=== PATIENT | female | born 1950 | race Caucasian/White ===

== ENCOUNTER 2020-02-13 11:36 | Outpatient (CLI) | payer BC, MEDICARE, SELFPAY ==
--- NOTE | ~2020-02-13 | XR_ITS ---
EXAMINATION: XR lumbar spine min 4V DATE: 02/13/2020 12:22 INDICATION: Low back pain with right-sided sciatica TECHNIQUE: Anteroposterior, lateral, and bilateral oblique views of the lumbar spine, and cone-down l ateral view of the lumbosacral junction were obtained. COMPARISON: None. FINDINGS: There are 2 mm of anterolisthesis of L3 on L4 and 4 mm of anterolisthesis of L4 on L5. Ther e is severe loss of intervertebral disc space height at L4-5 and L5-S1 moderate loss of disc space he ight throughout the remainder of the lumbar spine. The vertebral body heights are normal. Small degen erative osteophytes project from the anterior endplates of multiple vertebral bodies. There is no fra cture. Calcified atherosclerosis is noted. There is severe facet osteoarthritis of the lower lumbar s pine. The bowel gas pattern is normal. A moderate volume of colonic stool is present. IMPRESSION: 1. Severe lumbar spondylosis without acute findings. Reviewed, dictated and finalized at location A.
== END 2020-02-13 11:37 | disposition home or self-care (01) ==
LOC: ANHIMG 11:53
PROVIDERS: PCP Family Medicine; Visit Provider Family Medicine
DX: M54.41 Lumbago with sciatica, right side (principal); G89.29 Other chronic pain; M47.896 Other spondylosis, lumbar region
CPT/HCPCS: 72110

== ENCOUNTER 2020-03-30 07:48 | Outpatient (CLI) | payer MEDICARE, BC, SELFPAY ==
--- NOTE | 2020-03-30 08:00 | ECHO_ITS ---
Patient Info Name: Yesenia Castillo Age: 69 years : 1950 Gender: Female Ht: 60 in Wt: 225 lbs BSA: 2.14 m2 HR: 85 bpm BP: 173 / 88 mmHg Heart Rhythm: Sinus Rhythm Technical Quality: Good Exam Date: 03/30/2020 8:06 AM Exam Location: [facility] Patient Status: Outpatient Admit Date: 03/30/2020 Staff Ordering Physician: Eris Pathak PA-C Rolled Glass Crosscutter: Cristopher Reagan RDCS, RT Attending Provider: Eris Pathak PA-C Referring Physician: Lawson COTA; Exam Type: CA echo doppler color flow Study Info Indications I35.0 - Nonrheumatic aortic (valve) stenosis Complete two-dimensional, color flow and Doppler transthoracic echocardiogram is performed. Strain analysis performed. History/Risk Factors Mitral stenosis and Mitral regurgitation; HTN, Murmur. Summary 1. Left ventricular chamber dimension is normal. 2. Ventricular septum is sigmoid shaped. 3. Left ventricular systolic function is hyperdynamic, estimated at >70%. 4. There is moderately increased left ventricular wall thickness. 5. The left ventricular diastolic function is abnormal. 6. E/e' 42 is significantly elevated. 7. Left atrial chamber dimension is severely enlarged. 8. The mitral valve has not well visualized and severe calcified annulus. 9. There is moderate mitral valve stenosis based on valve area of 1.8 cm2 and mean gradient of 16 mmHg. 10. There is severe mitral valve regurgitation with regurgitant volume 147 ml and ERO 1.0 cm2. 11. Significant turbulent mitral inflow suggests significant mitral stenosis. 12. There is mild tricuspid valve regurgitation. 13. Mild pulmonary hypertension, estimated pulmonary arterial systolic pressure is 41 mmHg. Left Ventricle E/e' 42 is significantly elevated. Ventricular septum is sigmoid shaped. Left ventricular chamber dimension is normal. Left ventricular systolic function is hyperdynamic, estimated at >70%. There is moderately increased left ventricular wall thickness. The left ventricular diastolic function is abnormal. Right Ventricle Right ventricular chamber dimension is normal. Right ventricular systolic function is normal. Left Atria Left atrial chamber dimension is severely enlarged. Right Atria Right atrial chamber dimension is normal. Aortic Valve The aortic valve is trileaflet. There is no aortic valve stenosis. There is no aortic valve regurgitation. Pulmonic Valve There is no pulmonic regurgitation. Mitral Valve The mitral valve has not well visualized and severe calcified annulus. There is severe mitral valve regurgitation with regurgitant volume 147 ml and ERO 1.0 cm2. Significant turbulent mitral inflow suggests significant mitral stenosis. There is moderate mitral valve stenosis based on valve area of 1.8 cm2 and mean gradient of 16 mmHg. Tricuspid Valve There is mild tricuspid valve regurgitation. Mild pulmonary hypertension, estimated pulmonary arterial systolic pressure is 41 mmHg. Pericardium/Pleural There is no pericardial effusion. Inferior Vena Cava Normal inferior vena cava with >50% collapse upon inspiration consistent with normal right atrial pressure, 5 mmHg. Aorta The aortic root size at the sinus of Valsalva is normal. Left Ventricular Outflow Tract Name Value Normal LVO
== END 2020-03-30 07:49 | disposition home or self-care (01) ==
PROVIDERS: PCP Physician Assistant; Visit Provider Physician Assistant
DX: I08.3 Combined rheumatic disorders of mitral, aortic and tricuspid valves (principal)
CPT/HCPCS: 93306

== ENCOUNTER 2020-04-20 01:00 | Outpatient (CLI) | payer MEDICARE, SELFPAY ==
[2020-04-20 20:48] LABS: SARS-CoV-2 RNA PCR Negative
== END 2020-04-20 01:01 | disposition home or self-care (01) ==
LOC: ANHCOVIDDT 01:01
PROVIDERS: PCP Family Medicine; Visit Provider Internal Medicine Cardiovascular Disease
DX: Z01.812 Encounter for preprocedural laboratory examination (principal); Z20.828 Contact with and (suspected) exposure to other viral communicable diseases
CPT/HCPCS: 87635; C9803; U0003

== ENCOUNTER 2020-04-22 05:33 | Day surgery (SDC) | payer MEDICARE, BC, SELFPAY ==
[2020-04-21 16:12] VITALS: BMI 46.3
[2020-04-22] VITALS (9 sets, daily range): BP systolic 110–163; BP diastolic 61–101; PULSE 75–101; RESP 15–24; TEMP 35.9–36.1; O2SAT 96–100
--- NOTE | 2020-04-22 09:18 | P.SEDATION_ITS ---
Moderate Sedation Note-Pt Data Patient Data Diagnosis: Mixed mitral valve disease Present Complaint: as above Procedure to be performed/Plan: multiplanar transesophageal echocardiography with pulsed wave and color flow Doppler. Agitated saline study Moderate sedation Allergies Allergy/AdvReac Type Severity Reaction Status Date / Time No Known Allergies Allergy Verified 11/12/19 17:03 Home Medications Medication Instructions Recorded Confirmed Type atorvastatin 40 mg tablet 40 mg PO DAILY #30 tablet 11/19/19 04/21/20 Rx fluticasone propionate 50 1 spray NASAL BID PRN ml 11/19/19 04/21/20 History mcg/actuation nasal spray,suspension naproxen 500 mg tablet 500 mg PO BID PRN #60 tablet 02/09/20 04/21/20 Rx levothyroxine 100 mcg tablet 100 mcg PO . q.a.m. #30 tablet 02/25/20 04/21/20 Rx furosemide 20 mg tablet 20 mg PO QAM 04/01/20 04/21/20 History Sedation/Anesthesia: No previous sedation/anesthesia problems (including family history). 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 Heart murmur High blood pressure Hypothyroidism, unspecified Mitral valve stenosis and regurgitation Mixed hyperlipidemia Morbid obesity with BMI of 45.0-49.9, adult Obstructive sleep apnea on CPAP Seasonal allergic rhinitis Surgical History Surgical History H/O section (~1988) History of carpal tunnel release (~2004) S/P removal of thyroid nodule (~1997) Family History Family History Mother , 96 years old Cardiac arrhythmia Father , 69 years old Acute myocardial infarction Cerebrovascular accident Grandparent Pneumonia Grandparent Pneumonia Grandparent Emphysema, unspecified Grandparent Stomach cancer Sibling Cerebrovascular accident Social History Social History Smoking status: Never smoker Second hand tobacco smoke exposure: Yes Alcohol intake: never Substance use: never Substance use type: does not use Living arrangements: with family Gender identity (if verbalized by the patient): Female Spiritual care concerns: No Mod Sed Physical Exam Physical Exam Pre Procedural Exam: Normal: Appearance, Eyes, Ears, Nose, Neck, Throat, Airway, Lungs, Heart Size, Heart Rate, Heart Rhythm, Neuro Exam, Abdomen, Extremities and Skin Hours since solid foods: 12 Hours since liquid intake: 12 Internal Medicine - PN: Obj Da Vital Signs Vital Signs: Vital Signs - 24 hr 04/22/20 08:01 Temperature 35.9 C L Pulse Rate 94 Respiratory Rate 16 Blood Pressure 163/61 H Pulse Oximetry 98 ASA Classification/Sedation ASA Classification/Sedation ASA Class: II Emergent: No Risks: Risks, benefits and alternatives explained and patient/family accepted plan for sedation. Patient re-evaluated immediately prior to sedation.
--- NOTE | 2020-04-22 09:47 | WPDTEECHO ---
KOREY TransEsophageal Echocardiogram Date of procedure: 04/22/20 Procedure Type: 1. Multiplanar transesophageal echocardiogram with pulse wave and continuous wave and color flow Doppler 2. Agitated saline study 3. Moderate sedation Diagnosis: mixed mitral valve disease including mitral stenosis and mitral regurgitation Indications: mixed mitral valve disease Image Quality: good Findings: after discussing the risks, benefits alternatives of procedure the patient agreeable via verbal and written informed consent. Risks discussed included esophageal rupture perforation, , adverse reaction to anesthesia, bleeding, pain, infection. After establishing continuous telemetry monitoring, pulse oxygenation and serial blood pressure assessments, time-out was taken and the procedure was started. Medications given: Hurricaine spray to hypopharynx x2, viscous lidocaine gargle and swallow 8 mL, Versed 3 mg IV total, fentanyl 50 mcg IV total given in divided dosages Medications were administered and patient was monitored by Olivia Baires RN Complications: None Blood loss: None Start time 9:26 a.m. Stop time 9:44 a.m. Findings: Severe left ventricular hypertrophy with ejection fraction greater than 75%. Normal left ventricular size. Normal right ventricular size and function. Tricuspid valve is normal mild tricuspid regurgitation. Pulmonic valve is normal trivial pulmonic insufficiency. Aortic valve is mildly calcified with some restriction of the valve cusps and trivial aortic insufficiency. Left atrial appendage is normal with pulse-wave velocities of 50-75 centimeters/second. There is no mass or thrombus in the left atrial appendage. There is moderate to severe left atrial enlargement. Normal right atrial size. No pericardial effusion. Aortic root measures 2.9 cm. There is mild atherosclerotic disease within the aorta itself. The atrial septum is intact without color flow or agitated saline evidence of shunting. The mitral valve displays severe mitral annular calcification with restricted leaflet mobility. Mean gradient of 11 with moderate to severe mitral regurgitation. Conclusions: 1. Hyperdynamic left ventricle with left ventricular hypertrophy noted 2. Moderate to severe left atrial enlargement 3. Intact atrial septum with negative agitated saline study 4. Moderate to severe mitral regurgitation with moderate mitral stenosis 5. Mild tricuspid regurgitation 6. restricted aortic valve leaflets but without aortic stenosis 7. Moderate sedation
== END 2020-04-22 11:45 | disposition home or self-care (01) ==
PROVIDERS: PCP Family Medicine; Visit Provider Internal Medicine Cardiovascular Disease
PROC: (CPT 93312; principal; 2020-04-22 09:00)
DX: I05.2 Rheumatic mitral stenosis with insufficiency (principal); I36.1 Nonrheumatic tricuspid (valve) insufficiency; I27.20 Pulmonary hypertension, unspecified; G47.33 Obstructive sleep apnea (adult) (pediatric); E78.2 Mixed hyperlipidemia; I10 Essential (primary) hypertension; E03.9 Hypothyroidism, unspecified; E66.01 Morbid (severe) obesity due to excess calories; Z68.42 Body mass index [BMI] 45.0-49.9, adult
CPT/HCPCS: 93312; 93320; 93325; J2250; J3010; J7040

== ENCOUNTER → 2020-12-27 01:28 | Outpatient (CLI) | payer MEDICARE, SELFPAY ==
[2020-12-27 18:55] LABS: SARS-CoV-2 RNA PCR Negative
== END ==
PROVIDERS: PCP Family Medicine; Visit Provider Specialist
DX: Z01.812 Encounter for preprocedural laboratory examination (principal); Z20.822 Contact with and (suspected) exposure to COVID-19
CPT/HCPCS: C9803; U0003; U0005

== ENCOUNTER 2020-12-30 06:09 | Day surgery (SDC) | payer MEDICARE, SELFPAY ==
[2020-12-29 09:32] VITALS: BMI 44.3
[2020-12-30] VITALS (21 sets, daily range): BP systolic 92–145; BP diastolic 51–75; PULSE 47–105; RESP 14–24; TEMP 35.6–35.9; O2SAT 91–99; BMI 43.8
[2020-12-30 07:48] LABS: Basophils Percent Auto 0.1 % (0.2-1.2); Hematocrit 43.4 % (37.0-47.0); Hemoglobin 14.4 g/dL (12.0-15.0); Immature Granulocyte Absolute 0.02 K/mm3 (0.00-0.031); Immature Granulocyte Percent A 0.3 % (0-0.5); Lymphocytes Absolute Auto 1.13 K/mm3 (0.9-3.2); Lymphocytes Percent Auto 16.4 % (18.3-44.2); Mean Corpuscular HGB Conc 33.2 g/dl (32-36); Mean Corpuscular Hemoglobin 30.5 pg (26-34); Mean Corpuscular Volume 91.9 fl (80-100); Mean Platelet Volume 11.9 fl (7.4-10.4); Monocytes Absolute Auto 0.7 K/mm3 (0.1-0.6); Monocytes Percent Auto 10.1 % (2.6-8.5); Neutrophils Percent Auto 73.1 % (45.5-73.1); Platelet Count Result 184 k/mm3 (150-375); Red Blood Count 4.72 M/mm3 (4.2-5.4); Red Cell Distribution Width 11.9 % (11.5-14.5); White Blood Count 6.9 K/mm3 (4.5-10.0)
[2020-12-30 08:00] LABS: Anion Gap 8 mmol/L (8-16); Blood Urea Nitrogen 16 mg/dL (7-17); Carbon Dioxide 28 mmol/L (22-30); Chloride 106 mmol/L (98-107); Estimated Glomerular Filt Rate > 60; Glucose 95 mg/dL (65-105); Potassium 3.8 mmol/L (3.4-5.0); Sodium 142 mmol/L (137-145)
--- NOTE | 2020-12-30 08:33 | WPDMODSED ---
Moderate Sedation Note-Pt Data Patient Data Diagnosis: Mitral stenosis/ mitral regurgitation / aortic stenosis Present Complaint: exertional dyspnea Procedure to be performed/Plan: right and left heart catheterization Allergies Allergy/AdvReac Type Severity Reaction Status Date / Time No Known Allergies Allergy Verified 12/30/20 08:01 Home Medications Medication Instructions Recorded Confirmed Type fluticasone propionate 50 1 spray NASAL BID PRN ml 11/19/19 12/29/20 History mcg/actuation nasal spray,suspension furosemide 20 mg tablet 20 mg PO QAM 04/01/20 12/29/20 History levothyroxine 100 mcg tablet 100 mcg PO . q.a.m. #30 tablet 06/29/20 12/29/20 Rx atorvastatin 40 mg tablet See Rx Instructions .ROUTE 12/26/20 12/29/20 Rx .COMPLEX #30 tablet Current Medications: Active Medications Sodium Chloride (Normal Saline Iv) 500 mls @ 100 mls/hr IV CONT .Q5H UBALDO Sedation/Anesthesia: No previous sedation/anesthesia problems (including family history). 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 Heart murmur High blood pressure Hypothyroidism, unspecified Mitral valve stenosis and regurgitation Mixed hyperlipidemia Morbid obesity with BMI of 45.0-49.9, adult Obstructive sleep apnea on CPAP Seasonal allergic rhinitis Surgical History Surgical History H/O section (~1988) History of carpal tunnel release (~2004) S/P removal of thyroid nodule (~1997) Family History Family History Mother , 96 years old Cardiac arrhythmia Father , 69 years old Acute myocardial infarction Cerebrovascular accident Grandparent Pneumonia Grandparent Pneumonia Grandparent Emphysema, unspecified Grandparent Stomach cancer Sibling Cerebrovascular accident Social History Social History Smoking status: Never smoker Second hand tobacco smoke exposure: Yes Additional smoking assessment comments: Lived with a smoker for 7 years 30 years ago Alcohol intake: never Substance use: never Substance use type: does not use Living arrangements: alone Gender identity (if verbalized by the patient): Female Sexual Orientation (if Verbalized by the Patient): Straight or Heterosexual Spiritual care concerns: No Mod Sed Physical Exam Physical Exam Pre Procedural Exam: Normal: Neck, Throat, Airway, Lungs, Heart Size, Heart Rhythm ( murmurs of both and MR), Neuro Exam and Extremities and Variation: Appearance ( pleasant obese white female) and Heart Rate ( tachycardic) Hours since solid foods: 12 Hours since liquid intake: 12 Internal Medicine - PN: Obj Da Vital Signs Vital Signs: Vital Signs - 24 hr 12/30/20 07:50 Temperature 35.9 C L Pulse Rate 105 H Respiratory Rate 21 H Blood Pressure 145/71 H Pulse Oximetry 98 Meds/Results Medications: Active Medications Generic Name Dose Route Start Last Admin Trade Name Freq PRN Reason Stop Dose Admin Sodium Chloride 500 mls @ 100 mls/hr 12/30/20 07:00 Normal Saline Iv IV CONT .Q5H UBALDO Labs CBC & Chem 7: 12/30/20 07:42 12/30/20 07:42 Labs: Laboratory Results - last 24 hr 12/30/20 07:42 Sodium 142 Potassium 3.8 Chloride 106 Carbon Dioxide 28 Anion Gap 8 BUN 16 Creatinine 0.70 Estim Creat Clear Calc Not Reportable Estimated GFR > 60 Glucose 95 Calcium 10.0 ASA Classification/Sedation ASA Classification/Sedation ASA Class: II Emergent: No Risks: Risks, benefits and alternatives explained and patient/family accepted plan for
--- NOTE | 2020-12-30 11:00 | SUR.PHASEII ---
Addendum entered by Betzaida Montgomery RN 12/30/20 11:05: Cari MUÑOZ and Betzaida RN are no longer holding pressure over hematoma due to hematoma improvement and patient condition improving. Ammy RN still holding pressure over site. Original Note: Ammy RN took over cath hold for Cari MUÑOZ. Betzaida RN held pressure to hematoma below cath site. Patient's heart rate dropped to 40's and BP dropped to 90's systolic. Patient became pale and dizzy. Normal saline was given and 1/2 amp of atropine. Patient's heart rate has returned to 90's and BP systolic has returned to 120's. Patient states she is feeling better. Hematoma has improved.
--- NOTE | 2020-12-30 11:59 | WPDCARDPROC ---
Cardiac Cath Procedure Note Date of procedure:: 12/30/20 Performing physician:: Scott Salmon MD Indication:: aortic and mitral valve disease Brief clinical history:: this is a 70-year-old woman reporting increasing shortness of breath. She is known to have mitral valve stenosis / mitral regurgitation and has suspected aortic valve stenosis as well. She is being evaluated as a candidate for valvular heart surgery and in this setting right and left heart catheterization has been recommended. Procedure Procedure performed:: Right and left heart catheterization Sedation/Medication given:: fentanyl 50 mg Versed 2 mg case start time 914 a.m. case end time 9:41 a.m. sedation provided by Bessie Capps RN, trained observer Access site:: right femoral artery, right femoral vein Estimated blood loss:: 20-30 cc Procedure note:: patient was brought to the cardiac catheterization lab in the postabsorptive state where the right femoral triangle was prepared and draped in the normal fashion. Anesthesia was provided % lidocaine infiltrated locally. Following this the modified Seldinger technique was used to place a 6 Maltese 45 cm sheath into the descending aorta. Following this a 7 Maltese sheath was placed into the femoral vein. I then performed right heart catheterization using a balloon tipped Negaunee-Wanda catheter to measure right-sided hemodynamics, thermodilution cardiac outputs as well as measuring Laureano av O2 difference. The Negaunee-Wanda catheter was left into position and a 5 Maltese angled pigtail catheter was then advanced into the central aorta is the aortic root across the aortic valve and into the left ventricle. The catheters were both flushed an res here old and simultaneous LV EDP and wedge pressures were measured. Transmitral gradient was then measured and mitral valve area was calculated. After this the Negaunee-Wanda catheter was removed and the 2nd pressure line was placed side-arm of the 45 cm arterial sheath. Both lines again were then flushed and simultaneous LV and aortic pressures were measured the catheter was advanced slightly further into the left ventricle and simultaneous pressures were again measured. Aortic valve area was then calculated and the left ventriculogram was then injected in the 30 degree DONG projection. Catheters were then flushed and but pullbacks were measured across the aortic valve. The pigtail catheter was then removed. A JL4 coronary catheter was then used to engage and inject the left coronary artery in multiple projections. A 5 Maltese JR4 catheter was then Advanced into the aortic root and engaged into the RCA. This was seen to engage the conus branch. This catheter was then changed for a 5 Maltese WRP catheter which nicely engaged the right coronary artery for angiography. Following this the cineangiograms were reviewed and the case was terminated. An angiogram was done of the femoral artery through the sheath at which after which time it was determined that the catheter would be removed with direct manual compression. For post cath recovery and sheath removal. 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 Findings:: Hemodynamics: Mean right atrial pressure is 7, right ventricle 65 over 0 end-diastolic 10 pulmonary artery pressure 60 over 43. Pulmonary capillary wedge pressure 36 with a V-wave up to 55. Left ventricle 144 over 2 end-diastolic 16. Central aorta 145 over 56. It was seen that with the pigtail catheter immediately across the aortic valve there was minimal 5-6 mm transvalvular gradient. With the catheter advanced into the body of the left ventricle there was a 43 mm peak gradient. Cardiac output by thermodilution measures 5.0 liters/minute giving an index of 2.6. Laureano cardiac output measures 5.4 liters/minute giving an index of 2.8. Mean transmitral gradient is 24.5 mmHg the mitral valve area calculates to be 0.99 cm squa
--- NOTE | 2020-12-30 18:28 | SUR.PHASEII ---
WANDA Huston went through discharge instructions with patient. Patient verbalized understanding. Patient to be escorted off unit by wheelchair.
== END 2020-12-30 18:28 | disposition home or self-care (01) ==
PROVIDERS: PCP Family Medicine; Visit Provider Specialist
PROC: 4A023N8 Measurement of Cardiac Sampling and Pressure, Bilateral, Percutaneous Approach (ICD-10-PCS; CPT 93453; principal; 2020-12-30 08:30)
DX: Z01.810 Encounter for preprocedural cardiovascular examination (principal); I34.2 Nonrheumatic mitral (valve) stenosis; I34.0 Nonrheumatic mitral (valve) insufficiency; I35.0 Nonrheumatic aortic (valve) stenosis; R06.02 Shortness of breath; I27.20 Pulmonary hypertension, unspecified; E78.5 Hyperlipidemia, unspecified; M19.90 Unspecified osteoarthritis, unspecified site; G47.30 Sleep apnea, unspecified; E03.9 Hypothyroidism, unspecified; R00.2 Palpitations; G47.33 Obstructive sleep apnea (adult) (pediatric); E66.01 Morbid (severe) obesity due to excess calories; Z68.41 Body mass index [BMI] 40.0-44.9, adult; M47.816 Spondylosis without myelopathy or radiculopathy, lumbar region; E78.2 Mixed hyperlipidemia; F41.9 Anxiety disorder, unspecified
CPT/HCPCS: 36415; 80048; 85025; 93460; C1887; C1894; J0461; J1644; J2250; J3010; J7030; J7040

== ENCOUNTER 2021-07-26 16:00 | Outpatient (CLI) | payer MEDICARE, SELFPAY ==
[2021-07-26 17:05] LABS: Immature Platelet Fraction Pct 12.3 % (0.9-11.2); Mean Platelet Volume 11.8 fl (7.4-10.4); Platelet Count Result 132 k/mm3 (150-375)
== END 2021-07-26 16:01 | disposition home or self-care (01) ==
PROVIDERS: PCP Family Medicine; Visit Provider Family Medicine
DX: D69.6 Thrombocytopenia, unspecified (principal)
CPT/HCPCS: 36415; 85049; 85055

== ENCOUNTER 2021-09-14 18:00 | Outpatient (RCR) | payer MEDICARE, SELFPAY ==
[2021-05-19 15:23] VITALS: BP 120/68; PULSE 69; RESP 20; O2SAT 96
[2021-05-19 15:32] VITALS: PULSE 69
== END 2021-09-14 23:59 | disposition home or self-care (01) ==
LOC: ANHCPREHAB 18:00
PROVIDERS: PCP Physician Assistant; Visit Provider Internal Medicine Cardiovascular Disease
DX: Z95.2 Presence of prosthetic heart valve (principal)
CPT/HCPCS: 93798

== ENCOUNTER 2021-09-18 18:16 | Outpatient (RCR) | payer MEDICARE, SELFPAY ==
[2021-09-17 00:02] VITALS: BP 120/68; PULSE 69; RESP 20; O2SAT 96
== END 2021-09-18 19:30 | disposition home or self-care (01) ==
LOC: ANHCPREHAB 18:16
PROVIDERS: PCP Family Medicine; Visit Provider Internal Medicine Cardiovascular Disease
DX: Z95.2 Presence of prosthetic heart valve (principal)
CPT/HCPCS: 93798

== ENCOUNTER 2021-11-25 11:55 | Outpatient (CLI) | payer MEDICARE, SELFPAY ==
[2021-11-25 12:34] LABS: Basophils Percent Auto 0.3 % (0.2-1.2); Hematocrit 39.8 % (37.0-47.0); Immature Granulocyte Absolute 0.01 K/mm3 (0.00-0.031); Immature Granulocyte Percent A 0.2 % (0-0.5); Lymphocytes Absolute Auto 1.01 K/mm3 (0.9-3.2); Lymphocytes Percent Auto 16.6 % (18.3-44.2); Mean Corpuscular HGB Conc 32.7 g/dl (32-36); Mean Corpuscular Volume 94.8 fl (80-100); Mean Platelet Volume 12.2 fl (7.4-10.4); Monocytes Absolute Auto 0.6 K/mm3 (0.1-0.6); Monocytes Percent Auto 9.2 % (2.6-8.5); Neutrophils Absolute Auto 4.5 K/mm3 (1.3-6.7); Neutrophils Percent Auto 73.7 % (45.5-73.1); Red Cell Distribution Width 12.7 % (11.5-14.5); White Blood Count 6.1 K/mm3 (4.5-10.0)
[2021-11-25 12:54] LABS: Platelet Count Result 114 k/mm3 (150-375)
== END 2021-11-25 11:56 | disposition home or self-care (01) ==
LOC: ANHLAB 12:00
PROVIDERS: PCP Family Medicine; Visit Provider Physician Assistant Medical
DX: D69.6 Thrombocytopenia, unspecified (principal)
CPT/HCPCS: 36415; 85025

== ENCOUNTER 2022-01-21 19:15 | Emergency (ER) | payer MEDICARE, SELFPAY ==
[2022-01-21 19:20] VITALS: BP 147/73; PULSE 71; RESP 16; TEMP 36.9; O2SAT 98
--- NOTE | 2022-01-21 19:35 | ED.GENADULT ---
HPI - General Adult General Chief complaint: Unspecified Stated complaint: bleeding gums, on blood thinners Time Seen by Provider: 01/21/22 19:25 Source: patient History of Present Illness HPI narrative: Patient presents with bleeding gums. Patient reports she is on rivaroxaban as she has had heart valve replacement. She has noted bleeding gums since last night she talk to her chemical processing supervisor who instructed her to stop taking the rivaroxaban. She has continued bleeding throughout the day she made an appoint with her dentist tomorrow but given the bruise the bleeding came to the ER for further evaluation. She is not feeling lightheaded or dizzy she does not member any trauma to her teeth. She thinks maybe she ate a hard corn on the cob last night which may have triggered all this she denies any fevers, chills, nausea, vomiting. Related Data Home Medications Medication Instructions Recorded Confirmed fluticasone propionate 50 1 spray intranasal BID PRN Allergy 11/19/19 11/15/21 mcg/actuation nasal Symptoms spray,suspension (Flonase Allergy Relief) aspirin 81 mg tablet 81 mg PO DAILY 05/19/21 11/15/21 rivaroxaban 20 mg tablet 20 mg PO DAILY 05/19/21 11/15/21 furosemide 20 mg tablet 20 mg PO DAILY 11/01/21 11/15/21 metoprolol tartrate 50 mg tablet 50 mg PO BID 11/01/21 11/15/21 Allergies Allergy/AdvReac Type Severity Reaction Status Date / Time No Known Allergies Allergy Verified 01/21/22 19:22 Review of Systems Review of Systems: CONSTITUTIONAL: Denies fever, chills, or sweats. EYES: Denies visual changes, redness, or discharge. ENT: Denies rhinorrhea, congestion, sore throat, or otalgia. CARDIOVASCULAR: Denies chest pain, palpitations, or edema. RESPIRATORY: Denies cough or dyspnea. GASTROINTESTINAL: Denies abdominal pain, nausea, vomiting, or diarrhea. GENITOURINARY: Denies dysuria or hematuria. SKIN: Denies rash or itching. MUSCULOSKELETAL: Denies back pain, joint pain, or myalgia. NEUROLOGIC: Denies headache, numbness, dizziness, or weakness. PSYCHIATRIC: Denies anxiety or depression. All systems reviewed & are unremarkable except as noted in HPI and below [facility] Past Medical History Medical History (Updated 01/21/22 @ 20:23 by Nolan Mo MD) Acute low back pain with right-sided sciatica Chronic anxiety Chronic low back pain with right-sided sciatica Degenerative joint disease (DJD) of lumbar spine Heart murmur High blood pressure Hypothyroidism, unspecified Mitral valve stenosis and regurgitation Mixed hyperlipidemia Morbid obesity with BMI of 45.0-49.9, adult Obstructive sleep apnea on CPAP Seasonal allergic rhinitis Surgical History Surgical History H/O section (~1988) History of carpal tunnel release (~2004) S/P removal of thyroid nodule (~1997) Family History Family History Mother , 96 years old Cardiac arrhythmia HLD (hyperlipidemia) Hypertension Father , 69 years old Acute myocardial infarction Cerebrovascular accident HLD (hyperlipidemia) Hypertension Grandparent Pneumonia Grandparent Pneumonia Grandparent Emphysema, unspecified Grandparent Stomach cancer Sibling Cerebrovascular accident HLD (hyperlipidemia) Hypertension Social History Social History Smoking status: Never smoker Second hand tobacco smoke exposure: Yes Additional smoking assessment comments: Lived with a smoker for 7 years 30 years ago Alcohol intake: never Substance use: never Substance use type: does not use Gender identity (if verbalized by the patient): Female Sexual Orientation (if Verbalized by the Patient): Straight or Heterosexual Spiritual care concerns: No Exam Narrative: GENERAL: Well-appearing, well-nourished, and in no acut
[2022-01-21 19:48] LABS: Basophils Percent Auto 0.2 % (0.2-1.2); Hematocrit 38.9 % (37.0-47.0); Hemoglobin 12.8 g/dL (12.0-15.0); Immature Granulocyte Absolute 0.02 K/mm3 (0.00-0.031); Immature Granulocyte Percent A 0.4 % (0-0.5); Lymphocytes Absolute Auto 0.77 K/mm3 (0.9-3.2); Lymphocytes Percent Auto 13.6 % (18.3-44.2); Mean Corpuscular HGB Conc 32.9 g/dl (32-36); Mean Corpuscular Hemoglobin 31.4 pg (26-34); Mean Corpuscular Volume 95.3 fl (80-100); Mean Platelet Volume 12.5 fl (7.4-10.4); Monocytes Absolute Auto 0.5 K/mm3 (0.1-0.6); Monocytes Percent Auto 8.5 % (2.6-8.5); Neutrophils Absolute Auto 4.4 K/mm3 (1.3-6.7); Neutrophils Percent Auto 77.3 % (45.5-73.1); Platelet Count Result 102 k/mm3 (150-375); Red Blood Count 4.08 M/mm3 (4.2-5.4); Red Cell Distribution Width 12.1 % (11.5-14.5); White Blood Count 5.7 K/mm3 (4.5-10.0)
[2022-01-21 20:02] LABS: Alanine Aminotransferase 16 U/L (6-35); Albumin Level 4.6 g/dL (3.5-5.1); Alkaline Phosphatase 147 U/L (38-126); Aspartate Amino Transferase 25 U/L (14-36); Blood Urea Nitrogen 16 mg/dL (7-17); Calcium 9.4 mg/dL (8.4-10.2); Carbon Dioxide 27 mmol/L (22-30); Chloride 104 mmol/L (98-107); Estimated Glomerular Filt Rate > 60; Glucose 106 mg/dL (65-110); Potassium 4.2 mmol/L (3.4-5.0)
[2022-01-21 20:04] LABS: Anion Gap 10 mmol/L (8-16); Sodium 141 mmol/L (137-145)
[2022-01-21 20:06] LABS: INR 1.7; Prothrombin Time 19.3 Seconds (11.1-14.7)
[2022-01-21 20:07] LABS: Partial Thromboplastin Time 43.4 SECONDS (22.3-36.8)
== END 2022-01-21 20:32 | disposition home or self-care (01) ==
PROVIDERS: Emergency Provider Emergency Medicine; PCP Family Medicine
DX: D69.6 Thrombocytopenia, unspecified (principal); K06.8 Other specified disorders of gingiva and edentulous alveolar ridge; E03.9 Hypothyroidism, unspecified; I05.2 Rheumatic mitral stenosis with insufficiency; E78.2 Mixed hyperlipidemia; I10 Essential (primary) hypertension; E66.01 Morbid (severe) obesity due to excess calories; Z68.37 Body mass index [BMI] 37.0-37.9, adult; G47.33 Obstructive sleep apnea (adult) (pediatric); M47.816 Spondylosis without myelopathy or radiculopathy, lumbar region; Z95.2 Presence of prosthetic heart valve; Z79.01 Long term (current) use of anticoagulants
CPT/HCPCS: 36415; 80053; 85025; 85610; 85730; 99283

== ENCOUNTER → 2022-09-10 14:54 | Outpatient (CLI) | payer MEDICARE, SELFPAY ==
--- NOTE | ~2022-09-10 | XR_ITS ---
EXAM: XR thoracic spine 3V DATE: 09/10/2022 15:23 HISTORY: M89.8X1 - Other specified disorders of bone, shoulder . COMPARISON: None available. FINDINGS: Left chest pacer with intact leads. Cardiac valve replacements. Ostial markers. Mitral calc ification. Intact sternotomy wires. Decreased mineralization. Mild thoracic scoliosis. Vertebral body alignment intact. Vertebral body heights preserved. Multilevel moderate disc space narrowing and mar ginal osteophytosis with multiple small bridging osteophytes. No traumatic malalignment or fracture. Senescent change in the lungs. IMPRESSION: Multilevel moderate degenerative disc disease. Reviewed, dictated and finalized at location K. UNITY SERVICE ORGANIZATION DIRECTOR
--- NOTE | ~2022-09-10 | XR_ITS ---
EXAM: XR shoulder RT min 2V DATE: 09/10/2022 15:23 HISTORY: M25.511 - Pain in right shoulder . COMPARISON: None available. FINDINGS: Partially visualized pacing wires. Intact sternotomy wires. Cardiac valve replacement. Sen escent change in the visualized lung. Decreased mineralization. No fracture or dislocation. No lytic or blastic lesion. Mild degenerative change at the AC joint and glenohumeral joint. No erosion or per iosteal change. Soft tissues within normal limits. IMPRESSION: No acute osseous finding in the right shoulder. Reviewed, dictated and finalized at location K. FIC TECHNICIAN
== END ==
PROVIDERS: PCP Family Medicine; Visit Provider Family Medicine
DX: M25.511 Pain in right shoulder (principal); M89.8X1 Other specified disorders of bone, shoulder; M51.34 Other intervertebral disc degeneration, thoracic region
CPT/HCPCS: 72072; 73030

== ENCOUNTER 2022-09-10 15:38 | Outpatient (CLI) | payer MEDICARE, SELFPAY ==
[2022-09-10 16:08] LABS: Basophils Percent Auto 0.3 % (0.2-1.2); Hematocrit 39.9 % (37.0-47.0); Immature Granulocyte Absolute 0.03 K/mm3 (0.00-0.031); Immature Granulocyte Percent A 0.3 % (0-0.5); Lymphocytes Absolute Auto 1.51 K/mm3 (0.9-3.2); Lymphocytes Percent Auto 14.6 % (18.3-44.2); Mean Corpuscular HGB Conc 32.6 g/dl (32-36); Mean Corpuscular Hemoglobin 31.2 pg (26-34); Mean Corpuscular Volume 95.7 fl (80-100); Mean Platelet Volume 12.3 fl (7.4-10.4); Monocytes Absolute Auto 0.9 K/mm3 (0.1-0.6); Neutrophils Absolute Auto 7.9 K/mm3 (1.3-6.7); Neutrophils Percent Auto 75.8 % (45.5-73.1); Platelet Count Result 111 k/mm3 (150-375); Red Blood Count 4.17 M/mm3 (4.2-5.4); Red Cell Distribution Width 11.9 % (11.5-14.5); White Blood Count 10.4 K/mm3 (4.5-10.0)
[2022-09-10 16:17] LABS: Alanine Aminotransferase 23 U/L (6-35); Albumin Level 4.6 g/dL (3.5-5.1); Alkaline Phosphatase 111 U/L (38-126); Anion Gap 5 mmol/L (8-16); Aspartate Amino Transferase 29 U/L (14-36); Bilirubin,Total 0.7 mg/dL (0.2-1.3); Blood Urea Nitrogen 22 mg/dL (7-17); Calcium 9.2 mg/dL (8.4-10.2); Carbon Dioxide 31 mmol/L (22-30); Chloride 100 mmol/L (98-107); Cholesterol 142 mg/dL (0-200); Estimated Glomerular Filt Rate > 60; Glucose 82 mg/dL (65-110); HDL Direct 43 mg/dL; Potassium 3.9 mmol/L (3.4-5.0); Sodium 136 mmol/L (137-145); Triglycerides 132 mg/dL (<150)
[2022-09-10 16:27] LABS: LDL Cholesterol Direct 63 mg/dL
== END 2022-09-10 15:39 | disposition home or self-care (01) ==
PROVIDERS: PCP Family Medicine; Visit Provider Family Medicine
DX: E78.2 Mixed hyperlipidemia (principal); E03.9 Hypothyroidism, unspecified; D69.6 Thrombocytopenia, unspecified
CPT/HCPCS: 36415; 80053; 80061; 84443; 85025

== ENCOUNTER 2023-06-26 15:57 | Outpatient (CLI) | payer MEDICARE, SELFPAY ==
--- NOTE | ~2023-06-26 | US_ITS ---
EXAMINATION: US carotid duplex BI DATE: 06/26/2023 16:28 INDICATION: Left carotid bruit. TECHNIQUE: Grayscale, color Doppler, and pulsed Doppler images of the cervical carotid arteries were obtained. The degree of vessel stenosis is placed in one of the following categories: normal, <50%, 5 0-69%, >=70% but less than near-occlusion, near-occlusion, or total occlusion. Note that percent sten osis relative to normal distal artery lumen diameter is indirectly measured from velocity measurement s as described by Alex, et al. Radiology 2003; 229:340-346. COMPARISON: None. FINDINGS: RIGHT: The right common carotid artery (CCA) peak systolic velocity (PSV) is 99 cm/s. The right internal car otid artery (ICA) PSV is 149 cm/s. The right ICA end-diastolic velocity (EDV) is 39 cm/s. The right I CA/CCA PSV ratio is 1.5. Grayscale and color Doppler images yield an estimate of <50% diameter reduct ion from plaque in the ICA. There is antegrade flow in the right vertebral artery. LEFT: The left CCA PSV is 57 cm/s. The left ICA PSV is 75 cm/s. The left ICA EDV is 25 cm/s. The left ICA/C CA PSV ratio is 0.9. Grayscale and color Doppler images yield an estimate of <50% diameter reduction from plaque in the ICA. There is antegrade flow in the left vertebral artery. IMPRESSION: 1. <50% stenosis in the right internal carotid artery. 2. <50% stenosis in the left internal carotid artery. Reviewed, dictated and finalized at location E. TS ANNOUNCER
== END 2023-06-26 15:58 | disposition home or self-care (01) ==
LOC: ANHIMG 15:58
PROVIDERS: PCP Family Medicine; Visit Provider Internal Medicine Cardiovascular Disease
DX: R09.89 Other specified symptoms and signs involving the circulatory and respiratory systems (principal); I65.23 Occlusion and stenosis of bilateral carotid arteries
CPT/HCPCS: 93880

== ENCOUNTER 2023-07-09 15:45 | Outpatient (CLI) | payer MEDICARE, SELFPAY ==
[2023-07-09 16:12] LABS: Basophils Percent Auto 0.3 % (0.2-1.2); Hematocrit 41.3 % (37.0-47.0); Hemoglobin 13.7 g/dL (12.0-15.0); Immature Granulocyte Absolute 0.02 K/mm3 (0.00-0.031); Immature Granulocyte Percent A 0.3 % (0-0.5); Lymphocytes Absolute Auto 0.97 K/mm3 (0.9-3.2); Lymphocytes Percent Auto 12.5 % (18.3-44.2); Mean Corpuscular HGB Conc 33.2 g/dl (32-36); Mean Corpuscular Hemoglobin 31.5 pg (26-34); Mean Corpuscular Volume 94.9 fl (80-100); Mean Platelet Volume 12.2 fl (7.4-10.4); Monocytes Absolute Auto 0.7 K/mm3 (0.1-0.6); Monocytes Percent Auto 8.7 % (2.6-8.5); Neutrophils Absolute Auto 6.1 K/mm3 (1.3-6.7); Neutrophils Percent Auto 78.2 % (45.5-73.1); Platelet Count Result 120 k/mm3 (150-375); Red Blood Count 4.35 M/mm3 (4.2-5.4); Red Cell Distribution Width 11.5 % (11.5-14.5); White Blood Count 7.7 K/mm3 (4.5-10.0)
[2023-07-09 20:00] LABS: Iron 82 ug/dL (37-170)
[2023-07-09 20:13] LABS: Alanine Aminotransferase 35 U/L (6-35); Albumin Level 4.6 g/dL (3.5-5.1); Alkaline Phosphatase 127 U/L (38-126); Anion Gap 10 mmol/L (8-16); Aspartate Amino Transferase 38 U/L (14-36); Bilirubin,Total 0.8 mg/dL (0.2-1.3); Blood Urea Nitrogen 18 mg/dL (7-17); Calcium 9.7 mg/dL (8.4-10.2); Carbon Dioxide 31 mmol/L (22-30); Chloride 101 mmol/L (98-107); Estimated Glomerular Filt Rate > 60; Glucose 97 mg/dL (65-110); Lactate Dehydrogenase 287 U/L (120-246); Potassium 4.2 mmol/L (3.4-5.0); Sodium 142 mmol/L (137-145)
[2023-07-09 20:15] LABS: Percent Iron Saturation 24 % (20-50)
[2023-07-09 21:23] LABS: Folic Acid 18.3 ng/mL (2.76->20)
[2023-07-13 01:36] LABS: Methylmalonic Acid 171 nmol/L (87-318)
[2023-07-13 18:41] LABS: Soluble Transferrin Receptor 1.52 mg/L (0.76-1.76)
== END 2023-07-09 15:46 | disposition home or self-care (01) ==
LOC: ANHLAB 15:47
PROVIDERS: Nurse Practitioner Family; PCP Family Medicine; Visit Provider Internal Medicine Hematology & Oncology
DX: D50.9 Iron deficiency anemia, unspecified (principal)
CPT/HCPCS: 36415; 80053; 82607; 82728; 82746; 83540; 83550; 83615; 83921; 84238; 85025

== ENCOUNTER → 2023-07-18 08:56 | Outpatient (CLI) | payer MEDICARE, SELFPAY ==
--- NOTE | ~2023-07-18 | US_ITS ---
US abdomen complete EXAMINATION: US Abdomen Complete INDICATION: Secondary thrombocytopenia PROCEDURE: Realtime High Resolution abdomen ultrasound. COMPARISON: No prior studies for comparison FINDINGS: Gallbladder within normal limits. No gallstones, pericholecystic fluid, gallbladder wall t hickening or biliary dilatation. Common bile duct measures 4 mm. Liver echotexture within normal limits without focal mass. Pancreas within normal limits. Pancreati c tail is obscured by bowel gas. Spleen is unremarkeable. Renal echotexture is within normal limits bilaterally without hydronephrosis, contour deforming mass or renal stone. Right kidney measures 10 c m. Left kidney measures 9.8 cm. Visualized aspects of the aorta and IVC are within normal limits. Portal vein is patent. No sonograph ic Reagan's sign indicated by the technologist. IMPRESSION: 1: Normal abdominal ultrasound. Reviewed, dictated and finalized at location L. RVISOR TELLERS
== END ==
PROVIDERS: PCP Internal Medicine Hematology & Oncology; Visit Provider Internal Medicine Hematology & Oncology
DX: D69.59 Other secondary thrombocytopenia (principal)
CPT/HCPCS: 76700

== ENCOUNTER 2023-08-09 08:24 | Outpatient (CLI) | payer MEDICARE, SELFPAY ==
[2023-08-09 09:27] LABS: Influenza A QL RT-PCR Negative (Negative); Influenza B QL RT-PCR Negative (Negative); RSV RNA, RT-PCR Negative (Negative); SARS-CoV-2 RNA PCR Positive (Negative)
== END 2023-08-09 08:25 | disposition home or self-care (01) ==
PROVIDERS: PCP Internal Medicine Hematology & Oncology; Visit Provider Family Medicine
DX: U07.1 COVID-19 (principal)
CPT/HCPCS: 87637

== ENCOUNTER 2024-01-27 15:10 | Outpatient (CLI) | payer MEDICARE, SELFPAY ==
[2024-01-27 15:23] LABS: Basophils Absolute Auto 0.1 K/mm3 (0.0-0.1); Basophils Percent Auto 0.8 % (0.2-1.2); Eosinophils Percent Auto 0.2 % (0-4.4); Hematocrit 42.6 % (37.0-47.0); Hemoglobin 13.8 g/dL (12.0-15.0); Immature Granulocyte Absolute 0.02 K/mm3 (0.00-0.031); Immature Granulocyte Percent A 0.3 % (0-0.5); Mean Corpuscular HGB Conc 32.4 g/dl (32-36); Mean Corpuscular Hemoglobin 30.9 pg (26-34); Mean Corpuscular Volume 95.5 fl (80-100); Mean Platelet Volume 12.8 fl (7.4-10.4); Monocytes Absolute Auto 0.7 K/mm3 (0.1-0.6); Monocytes Percent Auto 10.6 % (2.6-8.5); Neutrophils Absolute Auto 4.4 K/mm3 (1.3-6.7); Neutrophils Percent Auto 68.1 % (45.5-73.1); Platelet Count Result 121 k/mm3 (150-375); Red Blood Count 4.46 M/mm3 (4.2-5.4); Red Cell Distribution Width 11.9 % (11.5-14.5); White Blood Count 6.5 K/mm3 (4.5-10.0)
[2024-01-27 15:27] LABS: Blood Urea Nitrogen 20 mg/dL (8-26); Carbon Dioxide 33 mmol/L (22-30); Chloride 102 mmol/L (98-109); Estimated Glomerular Filt Rate > 60; Glucose 87 mg/dL (70-105); Ionized Calcium (POC) 1.26 mmol/L (1.11-1.31); Potassium 3.9 mmol/L (3.5-4.9); Sodium 142 mmol/L (138-146)
[2024-01-27 16:37] LABS: Alanine Aminotransferase 23 U/L (6-35); Albumin Level 4.4 g/dL (3.5-5.1); Alkaline Phosphatase 115 U/L (38-126); Anion Gap 5 mmol/L (4-12); Aspartate Amino Transferase 31 U/L (14-36); Bilirubin,Total 0.8 mg/dL (0.2-1.3); Blood Urea Nitrogen 19 mg/dL (7-17); Calcium 9.5 mg/dL (8.4-10.2); Carbon Dioxide 31 mmol/L (22-30); Chloride 105 mmol/L (98-107); Estimated Glomerular Filt Rate > 60; Glucose 85 mg/dL (65-110); Potassium 3.9 mmol/L (3.4-5.0); Sodium 141 mmol/L (137-145)
== END 2024-01-27 15:11 | disposition home or self-care (01) ==
LOC: ANHLAB 15:12
PROVIDERS: PCP Family Medicine; Visit Provider Internal Medicine Hematology & Oncology
DX: D69.59 Other secondary thrombocytopenia (principal)
CPT/HCPCS: 36415; 80047; 80053; 85025

== ENCOUNTER 2024-09-15 14:35 | Outpatient (CLI) | payer MEDICARE, SELFPAY ==
[2024-09-15 14:48] LABS: Basophils Percent Auto 0.5 % (0.2-1.2); Hematocrit 42.7 % (37.0-47.0); Immature Granulocyte Absolute 0.01 K/mm3 (0.00-0.031); Immature Granulocyte Percent A 0.2 % (0-0.5); Immature Platelet Fraction Pct 12.6 % (0.9-11.2); Lymphocytes Absolute Auto 1.25 K/mm3 (0.9-3.2); Mean Corpuscular HGB Conc 32.8 g/dl (32-36); Mean Corpuscular Hemoglobin 31.7 pg (26-34); Mean Corpuscular Volume 96.6 fl (80-100); Mean Platelet Volume 11.8 fl (7.4-10.4); Monocytes Absolute Auto 0.7 K/mm3 (0.1-0.6); Neutrophils Absolute Auto 4.6 K/mm3 (1.3-6.7); Neutrophils Percent Auto 70.3 % (45.5-73.1); Platelet Count Result 124 k/mm3 (150-375); Red Blood Count 4.42 M/mm3 (4.2-5.4); Red Cell Distribution Width 11.6 % (11.5-14.5); White Blood Count 6.6 K/mm3 (4.5-10.0)
[2024-09-15 14:50] LABS: Blood Urea Nitrogen 16 mg/dL (8-26); Carbon Dioxide 26 mmol/L (22-30); Chloride 103 mmol/L (98-109); Estimated Glomerular Filt Rate > 60; Glucose 83 mg/dL (70-105); Ionized Calcium (POC) 1.18 mmol/L (1.11-1.31); Potassium 4.1 mmol/L (3.5-4.9); Sodium 140 mmol/L (138-146)
--- OUTSIDE RECORDS SUMMARY | 2024-09-15 15:12 | XMS_ITS | Clinical Summary ---
Author Organization [facility] ospital [facility] Address [address] [place] [address] Phone Care Team Providers Care Trestle Mechanic Name Role Phone Valerie Mascorro MD Primary Care Provider [phone] Allergies No known active allergies Medications atorvastatin (LIPITOR) 40 mg tablet Take 40 mg by mouth daily. 1 Active aspirin (ECOTRIN EC) 81 mg Tablet, Delayed Release (E.C.) Take 81 mg by mouth daily. 1 Active furosemide (LASIX) 20 mg tablet Take 20 mg by mouth daily. 3 Active Fluticasone Furoate (Flonase Sensimist) 27.5 mcg/actuation [place], Suspension Administer 1 [place] in each nostril. Active metoprolol tartrate (LOPRESSOR) 50 mg tablet Take 50 mg by mouth 2 times daily. 3 Active rivaroxaban (XARELTO) 20 mg Tablet Take 20 mg by mouth daily. 3 Active levothyroxine 100 mcg tablet Take 100 mcg by mouth daily in the morning. Active Active Problems No known active problems Encounters Date Type Department Care Team Description 09/15/2024 3:30 PM MANUFACTURING EXECUTIVE Office Visit [facility] Oncology and Hematology - [place] [address] [place] [phone] Bj Angeles MD Arrived 09/10/2024 External Device Data STL ABSTRACTION Provider, Abstract 09/09/2024 External Device Data STL ABSTRACTION Provider, Abstract 09/08/2024 External Device Data STL ABSTRACTION Provider, Abstract 09/02/2024 External Device Data STL ABSTRACTION Provider, Abstract 06/17/2024 External Device Data STL ABSTRACTION Provider, Abstract from Last 3 Months Family History Medical History Relation Name Comments Stroke Brother 1 No Known Problems Brother 2 Heart Disease Father Colon Cancer Mother Heart Disease Mother No Known Problems Sister 1 No Known Problems Sister 2 No Known Problems Son Relation Name Status Comments Brother 1 Alive Brother 2 Alive Father Mother Sister 1 Alive Sister 2 Alive Son Alive Social History Tobacco Use Types Packs/Day Years Used Date Smoking Tobacco: Never Smokeless Tobacco: Never Tobacco Cessation:Counseling Given: Not Answered Alcohol Use Standard Drinks/Week Comments Never 0 (1 standard drink = 0.6 oz pur e alcohol) Comments Unknown Sex and Gender Information Value Date Recorded Sex Assigned at Not on file Legal Sex Female 12:22 PM CDT Gender Identity Not on file Sexual Orientation Not on file Last Filed Vital Signs Vital Sign Reading Time Taken Comments Blood Pressure 136/71 09/15/2024 2:57 PM MANUFACTURING EXECUTIVE Pulse 66 09/15/2024 2:55 PM MANUFACTURING EXECUTIVE Temperature 36.7 ??C (98.1 ??F) 09/15/2024 2:55 PM CS T Respiratory Rate 15 09/15/2024 2:55 PM MANUFACTURING EXECUTIVE Oxygen Saturation 96% 09/15/2024 2:55 PM MANUFACTURING EXECUTIVE Inhaled Oxygen Concentration - - Weight 89.5 kg (197 lb 6.4 oz) 09/15/2024 2:55 P M MANUFACTURING EXECUTIVE Height 149.9 cm (4' 11 ) 03/07/2021 7:15 PM CDT Body Mass Index 39.87 03/07/2021 7:15 PM CDT Plan of Treatment Upcoming Encounters Date Type Department Care Team (Late st Contact Info) Description 09/15/2024 3:30 PM MANUFACTURING EXECUTIVE Office Visit [facility] Oncology and Hematology - [place] [address] [place] [address] Bj Angeles MD [address] [facility] [address] [place] [address] Arrived Health Maintenance Due Date Last Done Comments DTAP/TDAP/TD VACCINES (1 - Tdap) 12/24/1967 Traditional Medicare (ACO) Annual Wellness Visit 12/23 COLORECTAL SCREENING 1993 Colorectal Cancer Screening 1993 FIT-DNA Q 3 years 1993 FIT/FOBT Q 1 year 1993 Flex Sig/CT Colonography Q 5 years 1993 PNEUMOCOCCAL VACCINE 65+ YEARS (1 of 1 - PCV) 12/23/18 99 ZOSTER VACCINE (1 of 2) 1998 OSTEOPOROSIS SCREENING 2013 RSV VACCINE (60+ or ) (1 - 1-dose 75+ series) 12/24/2023 INFLUENZA VACCINE (#1) 2024 Insurance MEDICARE PART A AND B MEDICARE PART A AND B Advance Directives For more information, please contact: [phone] * Full Code (Latest Code Status on File) Date Activated Date Inactivated Comments 03/09/2021 10:54 AM 03/11/2021 1:51 PM * Default Full Code - Needs Discussion Date Activated Date Inactivated Comments 03/07/2021 6:20 PM 03/09/2021 10:54 AM Care Teams Trestle Mechanic Relationship Specialty Start Date End Date Valerie Mascorro MD [address] [place] [id number] PCP - General Family Practice 07/09/23
--- OUTSIDE RECORDS SUMMARY | 2024-09-15 15:12 | XMS_ITS | Clinical Summary ---
Author Organization [facility] [address] Address [address] [place] [address] Care Team Providers Care Brick Stacker Name Role Phone Miscellaneous, Not In File Unavailable Unava Valerie Weston MD Primary Care Provider [phone] Allergies No known active allergies Medications levothyroxine (SYNTHROID) 100 mcg tabletIndications :hypothyroidism Take 1 tablet (100 mcg total) by mouth every morning 0 Active fluticasone (Flonase Sensimist) 27.5 mcg/actuation nasal spray Administer 1 spray into each nostril daily as needed for allergies Active aspirin 81 mg enteric coated tablet Take 1 tablet (81 mg total) by mouth daily 90 tablet 3 1 Active rivaroxaban (Xarelto) 20 mg tablet Take 1 tablet (20 mg total) by mouth daily 90 tablet 3 4 Active furosemide (LASIX) 20 mg tablet TAKE 1 TABLET(20 MG) BY MOUTH DAILY 90 tablet 2 4 Active atorvastatin (LIPITOR) 40 mg tabletIndications :hyperlipidemia Take 1 tablet (40 mg total) by mouth nightly 90 tablet 2 4 Active metoprolol tartrate (LOPRESSOR) 50 mg immediate release tabletIndications :Paroxysmal atrial fibrillation (CMS/HCC) (HCC) Take 1 tablet (50 mg total) by mouth 2 (two) times a day 180 tablet 3 4 Active Active Problems Problem Noted Date Diagnosed Date Left carotid bruit 06/18/2023 Pacemaker 04/05/2021 Overview (04/06/2021): [employer] Essentio Dual Pacemaker. Dx; Atrioventricular HB, Afib/Aflutter. DOI 02/28/2021-Dr. Richa Rangel. Latitude remote monitoring. Status post aortic valve rep lacement with bioprosthetic valve 03/16/2021 Status post mitral valve rep lacement with bioprosthetic valve 03/16/2021 Hypokalemia 03/05/2021 Assessment & Plan (03/06/2021 11:13 AM CDT): Chasing K levels K level 3.7 Supplement as needed Assessment & Plan (03/05/2021 11:52 AM CDT): Check whole potassium Supplement as needed Atrial fibrillation (CMS/HCC) 03/03/2021 Assessment & Plan (03/06/2021 11:11 AM CDT): Currently AF, rate 90s Amiodarone bolus and amiodarone load completed Continue Amiodarone PO daily Daily 12 L = 504 Continue Metoprolol, titrate as tolerated Consider AC when Safe Monitor and treat electrolytes Assessment & Plan (03/05/2021 11:51 AM CDT): Currently AF, rate 90s Amiodarone bolus x 1 overnight Continue Amiodarone PO load Daily 12 L Qtc 548 Continue Metoprolol, titrate as tolerated Consider AC when Safe May need KOREY/cardioversion Monitor and treat electrolytes Leukocytosis 03/03/2021 Assessment & Plan (03/06/2021 11:12 AM CDT): Daily CBC WBC down from 20 to 17 to 15 today No fevers No overt signs of infection Incisions clean and dry UA negative 03/02 CXR 2V with + atelectasis, no effusion Aggressive IS and mobilization Consider CT if persistent Dopplers upper and lower negative for DVT Assessment & Plan (03/04/2021 9:02 AM CDT): Daily CBC WBC up from 17.4-20.2 No fevers No overt signs of infection Incisions clean and dry UA negative 03/02 CXR 2V with + atelectasis, no effusion Aggressive IS and mobilization Consider CT if persistent Stenosis of aortic and mitral valves 01/26/2021 Overview (01/26/2021): Added automatically from request for surgery [id number] Assessment & Plan (03/06/2021 11:09 AM CDT): S/p AVR, MVR 02/21/21 C/b CHB now s/p PPM implant Continue ASA, statin, metoprolol Continue Lasix BID po PT/OT Daily weights Discharge planning Assessment & Plan (03/04/2021 8:59 AM CDT): S/p AVR, MVR 02/21/21 C/b CHB now s/p PPM implant Continue ASA, statin, metoprolol Continue Lasix IV BID PT/OT Daily weights Consider TTE prior to discharge Heart block atrioventricular 01/26/2021 Overview (02/28/2021): Added automatically from request for surgery [id number] Assessment & Plan (03/06/2021 11:10 AM CDT): CHB post AVR, MVR S/p PPM implant 02/28/21 Interrogation of PPM per [employer]- episodes of AF w RVR noted Currently SR on monitor with 1 st degree AVB- rate 70-80s Monitor on telemetry Assessment & Plan (03/04/2021 9:00 AM CDT): CHB post AVR, MVR S/p PPM implant 02/28/21 Interrogation of PPM per [employer]- episodes of AF w RVR noted Currently paced alternating with AF, rate 90s Monitor on telemetry Hyperlipidemia 04/01/2020 Assessment & Plan (03/06/2021 11:02 AM CDT): Continue Atorvastatin Assessment & Plan (03/05/2021 11:52 AM CDT): Continue Atorvastatin Essential hypertension 04/01/2020 Assessment & Plan (03/06/2021 11:02 AM CDT): VS q 4 hrs Continue Lopressor to 25 mg Assessment & Plan (03/05/2021 11:51 AM CDT): VS q 4 hrs Continue Lopressor to 25 mg Hypothyroidism 04/01/2020 Assessment & Plan (03/06/2021 11:02 AM CDT): Continue L-thyroxine Assessment & Plan (03/01/2021 9:50 AM CDT): Continue L-thyroxine JORGE (obstructive sleep apnea) 04/01/2020 Assessment & Plan (03/06/2021 11:02 AM CDT): Continue to utilize home CPAP device Assessment & Plan (03/01/2021 9:48 AM CDT): Continue to utilize home CPAP device Morbid obesity with BMI of 40.0-44.9, adult 03/19 Pulmonary hypertension 04/01/2020 Encounters Date Type Department Care Team Description 07/03/2024 Orders Only [facility] Cardiology [facility] [phone] Michael Chan MD Complete heart block (CMS/HCC) (HCC) (Primary Dx); Paroxysmal atrial fibrillation (CMS/HCC) (HCC) 07/02/2024 3:00 PM BUSINESS AGENT Office Visit [facility] Cardiology [facility] [place] [address] [place] [phone] Kirsten Napier NP Status post aortic valve replacement with bioprosthetic valve (Primary Dx); Status post mitral valve replacement with bioprosthetic valve; Complete heart block (CMS/HCC) (HCC); Pacemaker [Z95.0]; Paroxysmal atrial fibrillation (CMS/HCC) (HCC); Chronic anticoagulation; Hyperlipidemia, unspecified hyperlipidemia type 07/02/2024 2:30 PM BUSINESS AGENT Ancillary Procedure [facility] Cardiology [address] [place] [address] [address] [place] [phone] Pacemaker (Primary Dx); PAF (paroxysmal atrial fibrillation) (CMS/HCC) (HCC); Complete heart block (CMS/HCC) (HCC) from Last 3 Months Surgical History Surgery Date Site/Laterality Comments CATARACT EXTRACTION both eyes, 2018 SECTION 08/19/1988 - 08/18/1989 CARDIAC VALVE REPLACEMENT February 2021, Aortic and Mitral Medical History Medical History Date Comments Arthritis back, x-ray January 2020 Cataract surgery, both eyes, lens implants, 2017 Neuromuscular disorder (HCC) Carpal tunn el syndrome, surgery left wrist 2000? Thyroid disease Nodule removed about 1997; Hypothyroidism Sleep apnea Use Cpap - daily - 10 compliant with nightly CPAP machine Heart disease Family History Medical History Relation Name Comments Arthritis Brother Jamin Smith Hypertension Brother Jamin Smith Obesity Brother Jamin Smith Stroke Brother Jamin Smith Depression Father Jairo Heart attack Father Jairo Stroke Father Jairo Arthritis Mother Conleth Heart disease Mother Conamnea Obesity Sister M Relation Name Status Comments Brother Jamin Smith Father Jairo Mother Conleth Sister M Social History Tobacco Use Types Packs/Day Years Used Date Smoking Tobacco: Never Smokeless Tobacco: Never Tobacco Cessation:Counseling Given: Not Answered Alcohol Use Standard Drinks/Week Comments Not Currently 0 (1 standard drink = 0.6 oz pure alcohol) Quit social drinking about 40 years ago AUDIT-C Answer Date Recorded Q1: How often do you have a drink containing alc ohol? Never 02/28/2021 Average Number of Drinks Not on file 021 Q3: How often do you have si x or more drinks on one occasion? Never 02/28/2021 Comments No Sex and Gender Information Value Date Recorded Sex Assigned at Not on file Legal Sex Female 2:24 AM BUSINESS AGENT Gender Identity Female 05/17/2021 6:02 AM CDT Sexual Orientation Straight 03/31/2020 12 :15 PM CDT Obstetrics History Last Filed Vital Signs Vital Sign Reading Time Taken Comments Blood Pressure 124/64 07/02/2024 2:45 PM BUSINESS AGENT Pulse 62 12/21/2023 12:47 PM CDT Temperature 36.8 ??C (98.2 ??F) 12/21/2023 12:47 PM C DT Respiratory Rate 20 12/21/2023 12:47 PM CDT Oxygen Saturation 95% 07/02/2024 2:45 PM BUSINESS AGENT Inhaled Oxygen Concentration - - Weight 88 kg (194 lb) 07/02/2024 2:45 PM BUSINESS AGENT Height 149.9 cm (4' 11 ) 07/02/2024 2:45 PM BUSINESS AGENT Body Mass Index 39.18 07/02/2024 2:45 PM BUSINESS AGENT Plan of Treatment Health Maintenance Due Date Last Done Comments Colon Cancer Screening-Colonoscopy 1950 Depression Screening 1950 Hepatitis C Screening 1950 Osteoporosis Screening-Bone Density Scan 1948 DTaP/Tdap/Td Vaccine (1 - Tdap) 12/24/1959 Hepatitis B Screening 1966 Zoster Vaccine (1 of 2) 1998 Pneumococcal vaccine 65+ (1 of 1 - PCV) 2013 Well Visit 65+ 2013 Fall Risk Assessment 03/07/2022 03/07/2021 Influenza Vaccine (#1) 2024 Medical Devices Implanted Type Area Director Of Collections Device Identifier Shelf Expiration Date Model / Serial / Lot [employer] Lianet 7841 Lead 7841 Endocardial Pacing Mr Is-1 Bipolar Connection - [id number] - [id number] Implanted:Qty: 1 on 02/28/2021 by Ilya Rangel MD PhD at [facility] Lead [employer] Lianet [id number] 12/20/2022 [id number] / [id number] / Description:RV lead [employer] Lianet 7840 Lead 7840 Endocardial Pacing Mr Is-1 Bipolar Connection - [id number] - [id number] Implanted:Qty: 1 on 02/28/2021 by Ilya Rangel MD PhD at [facility] Lead [employer] Lianet [id number] 01/13/2023 7840 / [id number] / Description:RA lead [employer] C.R.M. L111 Essentio 4.45x5.02cm 2 Chamber Is1 Connector .75cm Pacemaker 13.7 - [id number] - [id number] Implanted:Qty: 1 on 02/28/2021 by Ilya Rangel MD PhD at [facility] Pacemaker [employer] C.R.M. 12/13/2022 [id number] / [id number] / [id number] Description:PPM Generator [place] [id number] Inspiris Resilia Leaflet Sewing Ring 21mm Valve Aortic Bovine - [id number] - [id number] Implanted:Qty: 1 on 02/21/2021 by Paresh Benites MD at [facility] Prosthetic Valve N/A: Heart [employer] 06/22/2024 [id number] / [id number] / Medtronic Card Vasc Surgery [id number] Mcnulty Ii Cinch 25mm 18mm Bioprosthesis Stented Toribio Valve - [id number] - [id number] Implanted:Qty: 1 on 02/21/2021 by Paresh Benites MD at [facility] Prosthetic Valve N/A: Heart Med[employer]onic Inc 09/14/2021 [id number] / [id number] / [employer] [id number] Supple Yaquelin-Guard [place] Processing 4x4cm Patch Cardiovascular - [id number] Implanted:Qty: 1 on 02/21/2021 by Paresh Benites MD at [facility] N/A: Heart [id number] 06/15/2025 [id number] / [id number] Procedures Procedure Name Priority Date/Time Associated Diagnosis Comments DEVICE CHECK - IN OFFICE Routine 07/02/2024 2:21 PM BUSINESS AGENT PAF (paroxysmal atrial fibrillation) (CMS/HCC) (HCC) Complete heart block (CMS/HCC) (HCC) from Last 3 Months Results * DEVICE CHECK - IN OFFICE (07/02/2024 2:21 PM BUSINESS AGENT) Anatomical Region Laterality Modality Other Narrative 07/15/2024 4:50 PM BUSINESS AGENT [employer] Essentio Dual Pacemaker. Dx; Atrioventricular HB, Afib/Aflutter. DOI 02/28/2021-Dr. Richa Rangel. Latitude remote monitoring. Office DDD Pacemaker interrogation performed by [employer] company solar sales representative. Transmission attached. Stable lead impedances, pacing and sensing thresholds. Battery voltage- Ok , 3.5 years remaining to TEGAN. AP- 19%, DENTAL EQUIPMENT MECHANIC-100 %. Presenting rhythm: AP-DENTAL EQUIPMENT MECHANIC. [address]803 AT/AF episodes noted. AF burden 9%. Available [facility] sensing. No Ventricular arrhythmias detected. ?? Medication: ??Xarelto, ASA 81 mg, Lopressor. Atrial blanking after ventricular paced changed to 150 ms to decrease far field sensing. ??Increased ATR entry count to 8 beats. See scanned report. Latitude remote f/u 10/07/2024. Office device f/u expected in 1 year. us Michael Chan MD [facility] [place] Final Result from Last 3 Months Insurance MEDICARE MEDICARE [facility] MEDICARE SUPPLEMENT MEDICARE [facility] Advance Directives For more information, please contact: [phone] * Full Code (Latest Code Status on File) Date Activated Date Inactivated Comments 02/21/2021 2:38 PM 03/07/2021 9:43 PM Care Teams Brick Stacker Relationship Specialty Start Date End Date Valerie Mascorro MD PCP - General Family Medicine 04/05/21 Miscellaneous, Not In File 03/07/21
--- OUTSIDE RECORDS SUMMARY | 2024-09-15 15:12 | XMS_ITS | Clinical Summary ---
Author Organization [facility] Address [address] [place] [address] Care Team Providers Care Power And Recovery Supervisor Name Role Phone Valerie Mascorro MD Primary Care Provider [phone] Source Comments [facility],non-owned Affiliates and Associated Physician Practices is amultiple site organization consisting of ambulatory clinics and hospital sitesin [place], [place], [place] and [place]. This disclosure is being madepursuant to the Care Everywhere program and may not contain all information available regarding this patient. Last updated 18.[facility] Allergies No known active allergies Medications * Be aware that medications may not be up to date on this document. Alwaysverify current medications with the patient. Medication Sig Dispensed Refills Start Date End Date Status Levothyroxine Sodium (SYNTHROID PO) Active Fluticasone Propionate (FLONASE NA) Active atorvastatin (LIPITOR) 40 MG tablet Take 40 mg by mouth at bedtime Active Social History Tobacco Use Types Packs/Day Years Used Date Smoking Tobacco: Never Smokeless Tobacco: Never Sex and Gender Information Value Date Recorded Sex Assigned at Not on file Gender Identity Not on file Sexual Orientation Not on file Last Filed Vital Signs Vital Sign Reading Time Taken Comments Blood Pressure 126/74 07/05/2017 9:35 AM LASTING MACHINE OPERATOR HAND METHOD Pulse 79 07/05/2017 9:35 AM LASTING MACHINE OPERATOR HAND METHOD Temperature 36.5 ??C (97.7 ??F) 07/05/2017 9:35 AM CS T Respiratory Rate 18 07/05/2017 9:35 AM LASTING MACHINE OPERATOR HAND METHOD Oxygen Saturation 98% 07/05/2017 9:35 AM LASTING MACHINE OPERATOR HAND METHOD Inhaled Oxygen Concentration - - Weight 102.1 kg (225 lb) 07/05/2017 9:35 AM LASTING MACHINE OPERATOR HAND METHOD Height 149.9 cm (4' 11 ) 07/05/2017 9:35 AM LASTING MACHINE OPERATOR HAND METHOD Body Mass Index 45.44 07/05/2017 9:35 AM LASTING MACHINE OPERATOR HAND METHOD Plan of Treatment Health Maintenance Due Date Last Done Comments BONE DENSITY TESTING 1950 COLOGUARD (AGES 45-75) - COL ON CA SCREENING 1950 COLON MONITORING 1950 COLONOSCOPY - COLON CA SCREENING 1950 CT COLONOGRAPHY - COLON CA SCREENING 1950 Colorectal Cancer Screening 1950 FIT - COLON CA SCREENING 1950 FLEX SIG - COLON CA SCREENING 1950 MAMMOGRAM 1950 MEDICARE AWV ? 12 MONTHS 1950 HEPATITIS C SCREENING 12/19/1966 DTAP/TDAP/TD VACCINES (1 - Tdap) 12/24/1967 PNEUMOCOCCAL VACCINE 50+ (1 of 1 - PCV) 1998 ZOSTER VACCINE (1 of 2) 1998 SCREENING FOR DIABETES 07/05/2017 Respiratory Syncytial Virus (RSV) Vaccine Pt: or over 60 yrs (1 - 1-dose 75+ series) 12/24/2023 COVID-19 VACCINE ( - 2023-2 5 season) 2024 INFLUENZA VACCINE (#1) 2024 DEPRESSION SCREENING 08/19/2024 HEPATITIS B VACCINE Aged Out No longe r eligible based on patient's age to complete this topic HIB VACCINE Aged Out No longer eligi ble based on patient's age to complete this topic HPV VACCINE Aged Out No longer eligi ble based on patient's age to complete this topic MENINGOCOCCAL (Group B) VACCINE Aged Out No longer eligible based on patient's age to complete this topic MENINGOCOCCAL VACCINE Aged Out No tyler marycruz eligible based on patient's age to complete this topic Care Teams Power And Recovery Supervisor Relationship Specialty Start Date End Date Valerie Mascorro MD [address] [place] [address] PCP - General 11/28/21
--- OUTSIDE RECORDS SUMMARY | 2024-09-15 15:12 | XMS_ITS | Referral Summary ---
Author Organization [facility] Address [address] [place] [address] Care Team Providers Care Rug Cleaning Supervisor Name Role Phone Valerie Mascorro MD Primary Care Provider [phone] Source Comments [facility],non-owned Affiliates and Associated Physician Practices is amultiple site organization consisting of ambulatory clinics and hospital sitesin [place], [place], [place] and [place]. This disclosure is being madepursuant to the Care Everywhere program and may not contain all information available regarding this patient. Last updated 18.[facility] Allergies No known active allergies Medications * [...] Comments Blood Pressure 126/74 07/05/2017 9:35 AM PALLETIZER Pulse 79 07/05/2017 9:35 AM PALLETIZER Temperature 36.5 ??C (97.7 ??F) 07/05/2017 9:35 AM CS T Respiratory Rate 18 07/05/2017 9:35 AM PALLETIZER Oxygen Saturation 98% 07/05/2017 9:35 AM PALLETIZER Inhaled Oxygen Concentration - - Weight 102.1 kg (225 lb) 07/05/2017 9:35 AM PALLETIZER Height 149.9 cm (4' 11 ) 07/05/2017 9:35 AM PALLETIZER Body Mass Index 45.44 07/05/2017 9:35 AM PALLETIZER Plan of Treatment Not on file Care Teams Rug Cleaning Supervisor Relationship Specialty Start Date End Date Valerie Mascorro MD [address] [place] [address] PCP - General 11/28/21
--- OUTSIDE RECORDS SUMMARY | 2024-09-15 15:12 | XMS_ITS | Continuity of Care Document ---
Author Organization [facility] Address [address] [place] [address] [address] [place] [address] Phone Care Team Providers Care Wheel Installer Name Role Phone Xenia Street Unavailable Unavailable Procedures Procedure Date Eye Exam, New Patient Advance Directives Directive Yes / No Effective Date File Name No Information Encounters Encounter Description Practice Location Reason(s) For Visit Diagnoses Date Provider Providers Copied on Encounter [facility], [address] [place] [address] [address], [place], [place], [id number], [place] tel:[phone] [facility] No Information [address] Yenifer Michaels. [address] , [address], [place], [address], [place]. tel:[phone] Family History Family Member Type Diagnosis Age At Onset No Information Payers Payer name Insurance type Covered constitution party ID Authoriza tion(s) No Information Social [...]
--- OUTSIDE RECORDS SUMMARY | 2024-09-15 15:12 | XMS_ITS | Referral Summary ---
Author Organization [facility] [address] [place] [address] [address] [place] [address] Care Team Providers Care Cork Painter And Grader Name Role Phone Miscellaneous, Not In File Unavailable Unava Valerie Weston MD Primary Care Provider [phone] Encounters Date Type Department Care Team Description 07/03/2024 Orders Only [facility] Cardiology [facility] [facility] [address] [place] [phone] Michael Chan MD Complete heart block (CMS/HCC) (HCC) (Primary Dx); Paroxysmal atrial fibrillation (CMS/HCC) (HCC) 07/02/2024 2:30 PM PIPE TURNER Ancillary Procedure [facility] Cardiology [address] [place] [address] Pacemaker (Primary Dx); PAF (paroxysmal atrial fibrillation) (CMS/HCC) (HCC); Complete heart block (CMS/HCC) (HCC) 07/02/2024 3:00 PM PIPE TURNER Office Visit [facility] Cardiology [address] [place] [address] Kirsten Napier NP Status post aortic valve replacement with bioprosthetic valve (Primary Dx); Status post mitral valve replacement with bioprosthetic valve; Complete heart block (CMS/HCC) (HCC); Pacemaker [Z95.0]; Paroxysmal atrial fibrillation (CMS/HCC) (HCC); Chronic anticoagulation; Hyperlipidemia, unspecified hyperlipidemia type from Last 3 Months Allergies No known active allergies Medications levothyroxine [...] carotid bruit 06/18/2023 Pacemaker 04/05/2021 Overview (04/06/2021): [employer] JANZZ Essentio Dual Pacemaker. Dx; Atrioventricular HB, Afib/Aflutter. [...] (01/26/2021): Added automatically from request for surgery [id number] Assessment & Plan (03/06/2021 11:09 AM CDT): [...] (02/28/2021): Added automatically from request for surgery [id number] Assessment & Plan (03/06/2021 11:10 AM CDT): CHB post AVR, MVR S/p PPM implant 02/28/21 Interrogation of PPM per [employer]- episodes of AF w RVR noted Currently SR on monitor with 1 st degree AVB- rate 70-80s Monitor on telemetry Assessment & Plan (03/04/2021 9:00 AM CDT): CHB post AVR, MVR S/p PPM implant 02/28/21 Interrogation of PPM per [employer]- episodes of AF w RVR noted [...] of 40.0-44.9, adult 03/19 Pulmonary hypertension 04/01/2020 Social History Tobacco Use Types Packs/Day Years [...] on file Legal Sex Female 2:24 AM PIPE TURNER Gender Identity Female 05/17/2021 6:02 AM CDT Sexual Orientation Straight 03/31/2020 12 :15 PM CDT Last Filed Vital Signs Vital Sign Reading Time Taken Comments Blood Pressure 124/64 07/02/2024 2:45 PM PIPE TURNER Pulse 62 12/21/2023 12:47 PM CDT Temperature 36.8 ??C (98.2 ??F) 12/21/2023 12:47 PM C DT Respiratory Rate 20 12/21/2023 12:47 PM CDT Oxygen Saturation 95% 07/02/2024 2:45 PM PIPE TURNER Inhaled Oxygen Concentration - - Weight 88 kg (194 lb) 07/02/2024 2:45 PM PIPE TURNER Height 149.9 cm (4' 11 ) 07/02/2024 2:45 PM PIPE TURNER Body Mass Index 39.18 07/02/2024 2:45 PM PIPE TURNER Plan of Treatment Not on file Medical Devices Implanted Type Area Manager Lsw Device Identifier Shelf Expiration Date Model / Serial / Lot [employer] Lianet 7841 Lead 7841 Endocardial Pacing Mr Is-1 Bipolar Connection - [id number] - [id number] Implanted:Qty: 1 on 02/28/2021 by Ilya Rangel MD PhD at [facility] Lead [employer] Lianet [id number] 12/20/2022 7841 / [id number] / Description:RV lead [employer] Lianet 7840 Lead 7840 Endocardial Pacing Mr Is-1 Bipolar Connection - [id number] - [id number] Implanted:Qty: 1 on 02/28/2021 by Ilya Rangel MD PhD at [facility] Lead [employer] Lianet [id number] 01/13/2023 7840 / [id number] / Description:RA lead [employer] C.R.M. L111 Essentio 4.45x5.02cm 2 Chamber Is1 Connector .75cm Pacemaker 13.7 - [id number] - [id number] Implanted:Qty: 1 on 02/28/2021 by Ilya Rangel MD PhD at [facility] Pacemaker [employer] C.R.M. 12/13/2022 [id number] / [id number] / [id number] Description:PPM Generator Funez LifesNetManage [id number] Inspiris Resilia Leaflet Sewing Ring 21mm Valve Aortic Bovine - [id number] - [id number] Implanted:Qty: 1 on 02/21/2021 by Paresh Benites MD at [facility] Prosthetic Valve N/A: Heart Funez [employer]iences 06/22/2024 [id number] / [id number] / Medtronic Card Vasc Surgery [id number] Mcnulty Ii Cinch 25mm 18mm Bioprosthesis Stented Toribio Valve - [id number] - [id number] Implanted:Qty: 1 on 02/21/2021 by Paresh Benites MD at [facility] Prosthetic Valve N/A: Heart Medtronic Inc 09/14/2021 [id number] / [id number] / [employer] Lianet [id number] Supple Yaquelin-Guard [place] Processing 4x4cm Patch Cardiovascular - [id number] Implanted:Qty: 1 on 02/21/2021 by Paresh Benites MD at [facility] N/A: Heart [employer] Lianet 06/15/2025 [id number] / / [id number]- [id number] Procedures Procedure Name Priority Date/Time Associated Diagnosis Comments DEVICE CHECK - IN OFFICE Routine 07/02/2024 2:21 PM PIPE TURNER PAF (paroxysmal atrial fibrillation) (CMS/HCC) (HCC) Complete heart block (CMS/HCC) (HCC) from Last 3 Months Results * DEVICE CHECK - IN OFFICE (07/02/2024 2:21 PM PIPE TURNER) Anatomical Region Laterality Modality Other Narrative 07/15/2024 4:50 PM PIPE TURNER Z[employer]ge Essentio Dual Pacemaker. Dx; Atrioventricular HB, Afib/Aflutter. DOI 02/28/2021-Dr. Richa Rangel. Latitude remote monitoring. Office DDD Pacemaker interrogation performed by [employer] company business banking representative. Transmission attached. Stable lead impedances, pacing and sensing thresholds. Battery voltage- Ok , 3.5 years remaining to TEGAN. AP- 19%, SAND CUTTER OPERATOR-100 %. Presenting rhythm: AP-SAND CUTTER OPERATOR. [address] AT/AF episodes noted. AF burden 9%. Available ie's farfield sensing. No Ventricular arrhythmias detected. ?? Medication: ??Xarelto, ASA 81 mg, Lopressor. Atrial blanking after ventricular paced changed to 150 ms to decrease far field sensing. ??Increased ATR entry count to 8 beats. See scanned report. Latitude remote f/u 10/07/2024. Office device f/u expected in 1 year. Michael Chan MD [facility] Final Result from Last 3 Months Insurance MEDICARE [facility] Address: [facility] [address] [place] [address] MEDICARE BLUE CROSS MEDICARE SUPPLEMENT MEDICARE [facility] Advance Directives For more information, please contact: [phone] * Full Code (Latest Code Status on File) Date Activated Date Inactivated Comments 02/21/2021 2:38 PM 03/07/2021 9:43 PM Care Teams Cork Painter And Grader Relationship Specialty Start Date End Date Valerie Mascorro MD PCP - General Family Medicine 04/05/21 Miscellaneous, Not In File 03/07/21
--- OUTSIDE RECORDS SUMMARY | 2024-09-15 15:12 | XMS_ITS | Patient Health Summary ---
Author Organization [facility] [employer] Address [address] [place] [address] Care Team Providers Care Plunger Scoop Operator Name Role Phone Valerie Mascorro MD Primary Care Provider [phone] Note from [facility],non-owned Affiliates and Associated Physician Practices is amultiple site organization consisting of ambulatory clinics and hospital sitesin [place], [place], [place] and [place]. This disclosure is being madepursuant to the Care Everywhere program and may not contain all information available regarding this patient. Last updated 18.[facility] [employer] [facility] [employer] Allergies No known active allergies Medications * Be aware that medications may not be up to date on this document. Alwaysverify current medications with the patient. * Levothyroxine Sodium (SYNTHROID PO) * Fluticasone Propionate (FLONASE NA) * atorvastatin (LIPITOR) 40 MG tablet Take 40 mg by mouth at bedtime Social History Tobacco Use Types Packs/Day Years Used Date Smoking Tobacco: Never Smokeless Tobacco: Never Sex and Gender Information Value Date Recorded Sex Assigned at Not on file Gender Identity Not on file Sexual Orientation Not on file Last Filed Vital Signs Vital Sign Reading Time Taken Comments Blood Pressure 126/74 07/05/2017 9:35 AM EXPORT AGENT Pulse 79 07/05/2017 9:35 AM EXPORT AGENT Temperature 36.5 ??C (97.7 ??F) 07/05/2017 9:35 AM CS T Respiratory Rate 18 07/05/2017 9:35 AM EXPORT AGENT Oxygen Saturation 98% 07/05/2017 9:35 AM EXPORT AGENT Inhaled Oxygen Concentration - - Weight 102.1 kg (225 lb) 07/05/2017 9:35 AM EXPORT AGENT Height 149.9 cm (4' 11 ) 07/05/2017 9:35 AM EXPORT AGENT Body Mass Index 45.44 07/05/2017 9:35 AM EXPORT AGENT Procedures * STREP A SCREEN - POINT OF CARE (AMB) STL(Performed 07/05/2017) Performed for Acute pharyngitis, unspecified etiology Results * STREP A SCREEN - POINT OF CARE (AMB) STL (07/05/2017) Strep A Rapid POCT Negative Negative Strep A Internal Control Present Lot # [id number] Expiration Date 12/05/2018 Throat ENTIRE THROAT (SURFACE REGION OF NECK) / Unknown 07/05/2017 Rea Garces APRN-ENGINEERING PRODUCTION WORKER LAB - POINT OF CARE ORDERABLES Care Teams Plunger Scoop Operator Relationship Specialty Start Date End Date Valerie Mascorro MD [address] [place] [address] PCP - General 11/28/21
--- OUTSIDE RECORDS SUMMARY | 2024-09-15 15:12 | XMS_ITS | Encounter Summary ---
Author [facility] Address [address] [place] [address] Care Team Providers Care Stock Sorter Name Role Phone Valerie Mascorro MD Primary Care Provider [phone] Encounter Details Date Type Department Care Team (Late st Contact Info) Description 09/15/2024 3:30 PM STORE GROUP MANAGER Office Visit [facility] Oncology and Hematology - [place] [address] [facility] [address] [place] [address] Bj Angeles MD [address] [place] [address] Arrived Social History Tobacco Use Types Packs/Day Years [...] on file Sexual Orientation Not on file documented as of this encounter Last Filed Vital Signs Vital Sign Reading Time Taken Comments Blood Pressure 136/71 09/15/2024 2:57 PM STORE GROUP MANAGER Pulse 66 09/15/2024 2:55 PM STORE GROUP MANAGER Temperature 36.7 ??C (98.1 ??F) 09/15/2024 2:55 PM CS T Respiratory Rate 15 09/15/2024 2:55 PM STORE GROUP MANAGER Oxygen Saturation 96% 09/15/2024 2:55 PM STORE GROUP MANAGER Inhaled Oxygen Concentration - - Weight 89.5 kg (197 lb 6.4 oz) 09/15/2024 2:55 P M STORE GROUP MANAGER Height - - Body Mass Index 39.87 03/07/2021 7:15 PM CDT documented in this encounter Plan of Treatment Not on file documented as of this encounter Visit Diagnoses Not on filedocumented in this encounter Care Teams Stock Sorter Relationship Specialty Start Date End Date Valerie Mascorro MD [address] [place] [id number] PCP - General Family Practice 07/09/23 documented as of this encounter
[2024-09-15 15:54] LABS: Alanine Aminotransferase 22 U/L (6-35); Albumin Level 4.3 g/dL (3.5-5.1); Alkaline Phosphatase 131 U/L (38-126); Anion Gap 8 mmol/L (4-12); Aspartate Amino Transferase 32 U/L (14-36); Bilirubin,Total 0.9 mg/dL (0.2-1.3); Blood Urea Nitrogen 17 mg/dL (7-17); Calcium 9.3 mg/dL (8.4-10.2); Carbon Dioxide 28 mmol/L (22-30); Chloride 103 mmol/L (98-107); Estimated Glomerular Filt Rate > 60; Glucose 81 mg/dL (65-110); Potassium 4.2 mmol/L (3.4-5.0); Sodium 139 mmol/L (137-145)
== END 2024-09-15 14:36 | disposition home or self-care (01) ==
LOC: ANHLAB 14:37
PROVIDERS: PCP Family Medicine; Visit Provider Internal Medicine Hematology & Oncology
DX: D69.59 Other secondary thrombocytopenia (principal)
CPT/HCPCS: 36415; 80047; 80053; 85025; 85055

== ENCOUNTER 2025-06-15 15:01 | Outpatient (CLI) | payer MEDICARE, SELFPAY ==
--- OUTSIDE RECORDS SUMMARY | 2009-01-20 04:00 | XMS_ITS | Continuity of Care Document ---
Author Organization [facility] Address [address] [place] [address] [address] [place] [address] Phone Care Team Providers Care Vehicle Body Maker Name Role Phone Xenia Street Unavailable Unavailable Procedures Procedure Date Eye Exam, New Patient Advance Directives Directive Yes / No Effective Date File Name No Information Encounters Encounter Description Practice Location Reason(s) For Visit Diagnoses Date Provider Providers Copied on Encounter [facility], [address] [place] [address] [address], [place], [place], [id number], [place] tel:[phone] [facility] No Information [phone] Yenifer Michaels. [address] [facility] [address] , [address], [place], [address], [place]. tel:[phone] Family History Family Member Type Diagnosis Age At Onset No Information Payers Payer name Insurance type Covered green party ID Authoriza tion(s) No Information Social History Type Description Quantity Date Captured Comments Sex Female Smoking Status No Information Chief Complaint And Reason For Visit No Information Reason For Referral Reason For Referral No Information History Of Present Illness Encounter Date Complaint History Of Prese nt Illness No Information Functional Status Date Functional Assessmen t No Information Instructions Date Instruction Additional Infor mation No Information Assessments Type Assessment Date No Information Patient Care Teams Name Effective Dates (start - stop) Status Members No Information
[2025-06-15 15:12] LABS: Hematocrit 42.2 % (37.0-47.0); Hemoglobin 13.8 g/dL (12.0-15.0); Immature Granulocyte Percent A 0.3 % (0-0.5); Lymphocytes Absolute Auto 1.45 K/mm3 (0.9-3.2); Mean Corpuscular HGB Conc 32.7 g/dl (32-36); Mean Corpuscular Hemoglobin 31.0 pg (26-34); Mean Corpuscular Volume 94.8 fl (80-100); Nucleated Red Blood Cells Absolute Auto 0.000 K/mm3 (0.0-0.012); Nucleated Red Blood Cells Perc 0.0 % (0.0-0.2); Platelet Count Result 116 k/mm3 (150-375); Red Blood Count 4.45 M/mm3 (4.2-5.4); White Blood Count 6.3 K/mm3 (4.5-10.0)
[2025-06-15 15:16] LABS: Blood Urea Nitrogen 16 mg/dL (8-26); Carbon Dioxide 31 mmol/L (22-30); Chloride 102 mmol/L (98-109); Estimated Glomerular Filt Rate > 60; Glucose 85 mg/dL (70-105); Ionized Calcium (POC) 1.20 mmol/L (1.11-1.31); Potassium 4.4 mmol/L (3.5-4.9); Sodium 141 mmol/L (138-146)
--- OUTSIDE RECORDS SUMMARY | 2025-06-15 15:30 | XMS_ITS | Encounter Summary ---
Author Organization [facility] Address [address] [place] [address] Care Team Providers Care Instrumentation And Control Technician Name Role Phone Valerie Mascorro MD Primary Care Provider [phone] Reason for Visit * Reason Comments Follow Up Encounter Details Date Type Department Care Team ([facility] st Contact Info) Description 06/15/2025 3:30 PM CDT Office Visit [facility] Oncology and Hematology - [place] [address] [facility] [address] [place] [address] Bj Angelse MD [address] [facility] [facility] [address] [place] [address] Other secondary thrombocytopenia (Primary Dx) Social History Tobacco Use Types Packs/Day Years Used Date Smoking Tobacco: Never Smokeless Tobacco: Never Alcohol Use Standard Drinks/Week Comments Never 0 (1 standard drink = 0.6 oz pur e alcohol) Comments Unknown Sex and Gender Information Value Date Recorded Sex Assigned at Female 06/14/2025 6:41 PM CDT Legal Sex Female 12:22 PM CDT Gender Identity Female 06/14/2025 6:41 PM CDT Sexual Orientation Straight 06/14/2025 6: 41 PM CDT documented as of this encounter Last Filed Vital Signs Vital Sign Reading Time Taken Comments Blood Pressure 140/70 06/15/2025 3:33 PM CDT Pulse 63 06/15/2025 3:30 PM CDT Temperature 36 C (96.8 F) 06/15/2025 3:30 PM CDT Respiratory Rate 16 06/15/2025 3:30 PM CDT Oxygen Saturation 97% 06/15/2025 3:30 PM CDT Inhaled Oxygen Concentration - - Weight 88.9 kg (196 lb) 06/15/2025 3:30 PM CDT Height - - Body Mass Index 39.59 03/07/2021 7:15 PM CDT documented in this encounter Progress Notes * Bj Angeles MD - 06/15/2025 4:27 PM CDT HEMATOLOGY / ONCOLOGY PROGRESS NOTE Patient Identification: Name: Yesenia Smith Age: 74 y.o. Sex: female : 1950 DIAGNOSIS Thrombocytopenia CURRENT TREATMENT Surveillance TREATMENT HISTORY SUBJECTIVE Patient came to the office for follow-up visit. She denies any bleeding and bruising. Denies any chest pain and shortness of breath. Weight and appetite stable. No other new complaints. Review of system Constitutional: Patient did not mention fevers, sweats, weight and appetite stable, denies any tiredness and fatigue HEENT: Patient did not mention sinus congestion, hearing or vision problems Respiratory: Patient did not mention cough, dyspnea, wheeze Cardiovascular: Patient did not mention chest pain, exertional chest pressure/discomfort, nausea, syncope, shortness of breath GI: Patient did not mention constipation, diarrhea, dsyphagia, reflux symptoms, vomiting, melena : Patient did not mention dysuria, frequency, incontinence, urgency Integumentary system: no lymphadenopathy, sweats, flushing Musculoskeletal: Patient not mention: myalgia, arthralgia Neurological: Patient did not mention blurry or disturbed vision, numbness/weakness, dizziness Skin: No lumps, bumps or rashes. 12 point review of system was reviewed Objective: Vital signs in last 24 hours: As per nursing note Exam: General appearance: alert, cooperative, no distress, appears stated age Head: normocephalic, without obvious abnormality, atraumatic Eyes: conjunctivae/corneas clear, EOM's intact Ears: normal external ear canals AU Nose: Nares normal. Septum midline. Mucosa normal. No drainage or sinus tenderness Throat: Lips, mucosa, and tongue normal. Teeth and gums normal Neck: supple, symmetrical, trachea midline. Lungs: clear to auscultation bilaterally Heart: regular rate and rhythm, S1, S2 normal, no murmur, click, rub or gallop Abdomen: soft, non-tender. Bowel sounds normal. No masses, No organomegaly Extremities: extremities normal, atraumatic, no cyanosis or edema Skin: Skin color, texture, turgor normal. No rashes or lesions Lymph nodes: No lymphadenopathy Neuro: No obvious focal deficit Exam as above PATH LABS Labs from July 09 showed WBC 7.7 hemoglobin 13.7 platelet 120,000 mean platelet volume 12.2 creatinine 0.6 total bilirubin 0.8 AST 38 vitamin B12 559 iron 82 saturation 24% ferritin 41.4 soluble transferrin receptor 1.52 methylmalonic acid 171 Labs from January 26 showed WBC 6.5 hemoglobin 13.8 platelet 1 21,000 MPV 12.8 creatinine 0.8 Labs from September 15 showed WBC 6.6 hemoglobin 14 platelet 124,000 creatinine 0.8 Labs from June 15 showed creatinine 0.9 WBC 6.3 hemoglobin 13.8 platelet 116,000 MPV 12.4 Assessment: Plan: There are no active problems to display for this patient. Thrombocytopenia. Workup showed normal iron studies and B12 level. Mean platelet volume is slightlyelevated suggesting peripheral destruction but abdominal ultrasound showed normal spleen and liver.Liver enzymes AST was slightly elevated. Patient remains clinically asymptomatic. Labs showed stable platelet count of 116,000. No need for bone marrow biopsy testing. Will continue to see her back on a yearly basis. Atrial fibrillation. Stable on Xarelto. Patient is off the aspirin. Hypertension. Stable. Follow-up in 1 year 06/15/2025 Bj Angeles MD documented in this encounter Plan of Treatment Scheduled Orders Name Type Priority Associated Diagnoses Orde r Schedule CBC WITH DIFFERENTIAL Lab Stat Other secondary thrombocytopenia Expected: 06/15/2026, Expires: 09/13/2026 BASIC METABOLIC PANEL Lab Stat Other secondary thrombocytopenia Expected: 06/15/2026, Expires: 09/13/2026 documented as of this encounter Visit Diagnoses Diagnosis Other secondary thrombocytopenia- Primary documented in this encounter Care Teams Instrumentation And Control Technician Relationship Specialty Start Date End Date Valerie Mascorro MD [address] [place] [address] PCP - General Family Practice 07/09/23 documented as of this encounter
--- OUTSIDE RECORDS SUMMARY | 2025-06-15 17:22 | XMS_ITS | Clinical Summary ---
Author Organization [facility] Address [address] [address] Care Team Providers Care Cap Coverer Name Role Phone Valerie Mascorro MD Primary Care Provider [phone] Source Comments [facility],non-owned Affiliates and Associated Physician Practices is amultiple site organization consisting of ambulatory clinics and hospital sitesin [place], [place], [place] and [place]. This disclosure is being madepursuant to the Care Everywhere program and may not contain all information available regarding this patient. Last updated 18.[facility] Allergies No known active allergies Medications * Be aware that medications may not be up to date on this document. Alwaysverify current medications with the patient. Levothyroxine Sodium (SYNTHROID PO) Activ e Fluticasone Propionate (FLONASE NA) Active atorvastatin (LIPITOR) 40 MG tablet Take 40 mg by mouth at bedtime Active Social History Tobacco Use Types Packs/Day Years Used Date Smoking Tobacco: Never Smokeless Tobacco: Never Comments Unknown Sex and Gender Information Value Date Recorded Sex Assigned at Not on file Legal Sex Female 5:36 AM ENGINEER SOILS Gender Identity Not on file Sexual Orientation Not on file Last Filed Vital Signs Vital Sign Reading Time Taken Comments Blood Pressure 126/74 07/05/2017 9:35 AM ENGINEER SOILS Pulse 79 07/05/2017 9:35 AM ENGINEER SOILS Temperature 36.5 C (97.7 F) 07/05/2017 9:35 AM ENGINEER SOILS Respiratory Rate 18 07/05/2017 9:35 AM ENGINEER SOILS Oxygen Saturation 98% 07/05/2017 9:35 AM ENGINEER SOILS Inhaled Oxygen Concentration - - Weight 102.1 kg (225 lb) 07/05/2017 9:35 AM ENGINEER SOILS Height 149.9 cm (4' 11) 07/05/2017 9:35 AM ENGINEER SOILS Body Mass Index 45.44 07/05/2017 9:35 AM ENGINEER SOILS Plan of Treatment Health Maintenance Due Date Last Done Comments BONE DENSITY TESTING 1950 HEPATITIS C SCREENING 12/19/1966 DTAP/TDAP/TD VACCINES (1 - Tdap) 12/24/1967 PNEUMOCOCCAL VACCINE 50+ (1 of 1 - PCV) 1998 ZOSTER VACCINE (1 of 2) 1998 SCREENING FOR DIABETES 07/05/2017 Respiratory Syncytial Virus (RSV) Vaccine Pt: or over 60 yrs (1 - 1-dose 75+ series) 12/24/2023 DEPRESSION SCREENING 08/19/2024 COVID-19 VACCINE (1 - 2023-2 5 season) 2025 INFLUENZA VACCINE (#1) 2025 HEPATITIS B VACCINE Aged Out No longe r eligible based on patient's age to complete this topic HIB VACCINE Aged Out No longer eligi ble based on patient's age to complete this topic HPV VACCINE Aged Out No longer eligi ble based on patient's age to complete this topic MENINGOCOCCAL (Group B) VACC INE SHARED DECISION-MAKING Aged Out No longer eligibl e based on patient's age to complete this topic MENINGOCOCCAL GROUPS A/C/Y/W VACCINE Aged Out No longer eligible b ased on patient's age to complete this topic Insurance [facility] MEDICARE MEDICARE Care Teams Cap Coverer Relationship Specialty Start Date End Date Valerie Mascorro MD [address] [place] [address] PCP - General 11/28/21
--- OUTSIDE RECORDS SUMMARY | 2025-06-15 17:22 | XMS_ITS | Clinical Summary ---
Author Organization [facility] [address] Address [address] [place] [address] Care Team Providers Care Sericulturist Name Role Phone Miscellaneous, Not In File Unavailable Unava Valerie Weston MD Primary Care Provider [phone] Allergies No known active allergies Medications levothyroxine (SYNTHROID) 100 mcg tabletIndication s:hypothyroidism Take 1 tablet (100 mcg total) by mouth every morning 0 Active fluticasone (Flonase Sensimist) 27.5 mcg/actuation nasal spray Administer 1 spray into each nostril daily as needed for allergies Active atorvastatin (LIPITOR) 40 mg tablet TAKE 1 TABLET(40 MG) BY MOUTH EVERY NIGHT 90 tablet 2 5 Active Xarelto 20 mg tablet TAKE 1 TABLET(20 MG) BY MOUTH DAILY 90 tablet 3 5 Active amoxicillin 500 mg capsule TAKE 4 CAPSULE BY MOUTH 1 HOUR PRIOR TO DENTAL APPOINTMENT 5 Active penicillin v potassium (VEETID) 500 mg tablet Take 1 tablet (500 mg total) by mouth 4 (four) times a day 5 Active furosemide (LASIX) 20 mg tablet TAKE 1 TABLET(20 MG) BY MOUTH DAILY 90 tablet 3 5 Active metoprolol tartrate (LOPRESSOR) 50 mg immediate release tabletIndication s:Paroxysmal atrial fibrillation (HCC) TAKE 1 TABLET(50 MG) BY MOUTH TWICE DAILY 180 tablet 3 5 Active Active Problems Problem Noted Date Diagnosed Date Left carotid bruit 06/18/2023 Pacemaker 04/05/2021 Overview (04/06/2021): [employer] Essentio Dual Pacemaker. Dx; Atrioventricular HB, Afib/Aflutter. [...] whole potassium Supplement as needed Atrial fibrillation 03/03/2021 Assessment & Plan (03/06/2021 11:11 AM [...] (01/26/2021): Added automatically from request for surgery [id number] Assessment & Plan (03/06/2021 11:09 AM CDT): [...] (02/28/2021): Added automatically from request for surgery [id number] Assessment & Plan (03/06/2021 11:10 AM CDT): CHB post AVR, MVR S/p PPM implant 02/28/21 Interrogation of PPM per [employer]- episodes of AF w RVR noted Currently SR on monitor with 1 st degree AVB- rate 70-80s Monitor on telemetry Assessment & Plan (03/04/2021 9:00 AM CDT): CHB post AVR, MVR S/p PPM implant 02/28/21 Interrogation of PPM per [employer]- episodes of AF w RVR noted [...] Encounters Date Type Department Care Team Description 04/29/2025 Telephone [facility] Cardiology at [address] [place] [address] Olivia Moss MA Stop ASA 04/26/2025 2:00 PM CDT Office Visit [facility] Cardiology [address] [place] [address] Kirsten Napier NP Status post mitral valve replacement with bioprosthetic valve (Primary Dx); Status post aortic valve replacement with bioprosthetic valve; Complete heart block (HCC); Pacemaker [Z95.0]; Paroxysmal atrial fibrillation (HCC); Chronic anticoagulation; Thrombocytopenia 04/07/2025 7:45 AM CDT Ancillary Procedure [facility] Cardiology [address], [place] [address] Pacemaker [Z95.0] (Primary Dx); Complete heart block (HCC); Paroxysmal atrial fibrillation (HCC) 04/07/2025 Orders Only [facility] Cardiology [address] [facility] [place] [address] Michael Chan MD Paroxysmal atrial fibrillation (HCC) (Primary Dx); Pacemaker; Complete heart block (HCC) from Last 3 Months Surgical History Surgery Date Site/Laterality Comments CATARACT EXTRACTION both eyes, 2018 SECTION 08/19/1988 - 08/18/1989 CARDIAC VALVE REPLACEMENT February 2021, Aortic and Mitral Medical History Medical History Date Comments Arthritis back, x-ray January 2020 Cataract surgery, both eyes, lens implants, 2017 Neuromuscular disorder Carpal tunnel syn drome, surgery left wrist 2000? Thyroid disease Nodule removed about 1997; Hypothyroidism Sleep apnea Use Cpap - daily - 10 compliant with nightly CPAP machine Heart disease Family History Medical History Relation Name Comments Arthritis Brother Jamin Smith Hypertension Brother Jamin Smith Obesity Brother Jamin Smith Stroke Brother Jamin Smith Depression Father 1990, age 69 Heart attack Father 1990, age 69 Stroke Father 1990, age 69 Arthritis Mother 2017, age 96 Heart disease Mother 2017, age 96 Obesity Sister M Relation Name Status Comments Brother Jamin Smith Father 1990, age 69 Mother 2017, age 96 Sister M Social History Tobacco Use Types [...] on file Legal Sex 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 Gender Identity Female 05/17/2021 6:02 AM CDT Sexual Orientation Straight 03/31/2020 12 :15 PM CDT Obstetrics History Last Filed Vital Signs Vital Sign Reading Time Taken Comments Blood Pressure 122/62 04/26/2025 2:08 PM CDT Pulse 60 04/26/2025 2:08 PM CDT Temperature 36.8 C (98.2 F) 12/21/2023 12:47 PM CDT Respiratory Rate 20 12/21/2023 12:47 PM CDT Oxygen Saturation 96% 04/26/2025 2:08 PM CDT Inhaled Oxygen Concentration - - Weight 87.1 kg (192 lb) 04/26/2025 2:08 PM CDT Height 149.9 cm (4' 11) 04/26/2025 2:08 PM CDT Body Mass Index 38.78 04/26/2025 2:08 PM CDT Plan of Treatment Health Maintenance Due Date Last Done Comments Depression Screening 1950 Hepatitis C Screening 1950 Osteoporosis Screening-Bone Density Scan 1950 DTaP/Tdap/Td Vaccine (1 - Tdap) 12/24/1959 Hepatitis B Screening 1966 Pneumococcal vaccine 65+ (1 of 1 - PCV) 1998 Zoster Vaccine (1 of 2) 1998 Well Visit 65+ 2013 Fall Risk Assessment 03/07/2022 03/07/2021 Influenza Vaccine (#1) 2025 Medical Devices Implanted Type Area Advertising Associate Device Identifier Shelf Expiration Date Model / Serial / Lot [employer] Lianet 7841 Lead 7841 Endocardial Pacing Mr Is-1 Bipolar Connection - [id number] - [id number] Implanted:Qty: 1 on 02/28/2021 by Ilya Rangel MD PhD at [facility] Lead [employer] Lianet [id number] 12/20/2022 [id number] / [id number] / Description:RV lead [employer] Lianet 7840 Lead 7840 Endocardial Pacing Mr Is-1 Bipolar Connection - [id number] - [id number] Implanted:Qty: 1 on 02/28/2021 by Ilya Rangel MD PhD at [facility] Lead [employer] Lianet [id number] 01/13/2023 7840 / [id number] / Description:RA lead [employer] C.R.M. L111 Essentio 4.45x5.02cm 2 Chamber Is1 Connector .75cm Pacemaker 13.7 - [id number] - [id number] Implanted:Qty: 1 on 02/28/2021 by Ilya Rangel MD PhD at [facility] Pacemaker [employer] C.R.M. 12/13/2022 [id number] / [id number] / [id number] Description:PPM Generator NoRedInkciEntraTympanic [id number] Inspiris Resilia Leaflet Sewing Ring 21mm Valve Aortic Bovine - [id number] - [id number] Implanted:Qty: 1 on 02/21/2021 by Paresh Benites MD at [facility] Prosthetic Valve N/A: Heart [employer] 06/22/2024 [id number] / [id number] / Medtronic Card Vasc Surgery [id number] Mcnulty Ii Cinch 25mm 18mm Bioprosthesis Stented Toribio Valve - [id number] - [id number] Implanted:Qty: 1 on 02/21/2021 by Paresh Benites MD at [facility] Prosthetic Valve N/A: Heart Med[employer] Inc 09/14/2021 [id number] / [id number] / [employer] Lianet [id number] Supple Yaquelin-Guard Edison Processing 4x4cm Patch Cardiovascular - [id number] Implanted:Qty: 1 on 02/21/2021 by Paresh Benites MD at [facility] N/A: Heart [employer] Lianet 06/15/2025 [id number] / / [id number] Procedures Procedure Name Priority Date/Time Associated Diagnosis Comments DEVICE CHECK - REMOTE Routine 04/07/2025 7:15 AM CDT Complete heart block (HCC) Paroxysmal atrial fibrillation (HCC) from Last 3 Months Results * DEVICE CHECK - REMOTE (04/07/2025 7:15 AM CDT) Anatomical Region Laterality Modality Other Narrative 04/13/2025 5:15 PM CDT [employer]Layout Essentio Dual Pacemaker. Dx; Atrioventricular HB, Afib/Aflutter. DOI 02/28/2021-Dr. Richa Rangel. Latitude remote monitoring-transferred 04/06/21. Routine DDD Pacemaker remote. Normal device function. Battery function-Ok, 3.5 years remaining battery life to TEGAN. Appropriate lead measurements noted. Presenting rhythm: AP-BELT OPERATOR. AP-54%, BELT OPERATOR-100%. 3 Atrial high rate episode noted. No Ventricular high rate episodes noted. Medications; Lopressor, Xarelto. See scanned report. Latitude remote f/u 07/07/2025. Liliana Hair RN us Michael Chan MD [facility] [place] Final Result from Last 3 Months Insurance MEDICARE MEDICARE [facility] MEDICARE SUPPLEMENT Member Subscriber Plan / Payer (Ef fective 2020-Present) Name:Tawanda Smithann Seble Relation to Subscriber:Self Name:Tawanda Smithann Seble Payer ID:[id number] Group ID:[id number] Type:COMMERCIAL Address: [address] [place] [id number] MEDICARE [facility] Advance Directives For more information, please contact: [phone] * Full Code (Latest Code Status on File) Date Activated Date Inactivated Comments 02/21/2021 2:38 PM 03/07/2021 9:43 PM Care Teams Sericulturist Relationship Specialty Start Date End Date Valerie Mascorro MD PCP - General Family Medicine 04/05/21 Miscellaneous, Not In File 03/07/21
--- OUTSIDE RECORDS SUMMARY | 2025-06-15 17:22 | XMS_ITS | Clinical Summary ---
Author Organization [facility] Address [address] [place] [address] Phone Care Team Providers Care Mechatronics Technician Name Role Phone Valerie Mascorro MD Primary Care Provider [phone] Allergies No known active allergies Medications atorvastatin (LIPITOR) 40 mg tablet Take 40 mg by mouth daily. 1 Active aspirin (ECOTRIN EC) 81 mg Tablet, Delayed Release (E.C.) Take 81 mg by mouth daily. 1 Active furosemide (LASIX) 20 mg tablet Take 20 mg by mouth daily. 3 Active Fluticasone Furoate (Flonase Sensimist) 27.5 mcg/actuation [place], Suspension Administer 1 [place] in each nostril. Active metoprolol tartrate (LOPRESSOR) 50 mg tablet Take 50 mg by mouth 2 times daily. 3 Active rivaroxaban (XARELTO) 20 mg Tablet Take 20 mg by mouth daily. 3 Active levothyroxine 100 mcg tablet Take 100 mcg by mouth daily in the morning. Active Active Problems No known active problems Encounters Date Type Department Care Team Description 06/15/2025 3:30 PM CDT Office Visit [facility] Oncology and Hematology - [place] [address] [place] [address] Bj Angeles MD Other secondary thrombocytopenia (Primary Dx) 06/09/2025 External Device Data STL ABSTRACTION Provider, Abstract 06/08/2025 External Device Data STL ABSTRACTION Provider, Abstract 05/11/2025 External Device Data STL ABSTRACTION Provider, Abstract 05/04/2025 External Device Data STL ABSTRACTION Provider, Abstract [...] Orientation Straight 06/14/2025 6: 41 PM CDT Last Filed Vital Signs Vital Sign Reading Time Taken Comments Blood Pressure 140/70 06/15/2025 3:33 PM CDT Pulse 63 06/15/2025 3:30 PM CDT Temperature 36 C (96.8 F) 06/15/2025 3:30 PM CDT Respiratory Rate 16 06/15/2025 3:30 PM CDT Oxygen Saturation 97% 06/15/2025 3:30 PM CDT Inhaled Oxygen Concentration - - Weight 88.9 kg (196 lb) 06/15/2025 3:30 PM CDT Height 149.9 cm (4' 11) 03/07/2021 7:15 PM CDT Body Mass Index 39.59 03/07/2021 7:15 PM CDT Plan of Treatment Health Maintenance Due Date Last Done Comments DTAP/TDAP/TD VACCINES (1 - Tdap) 12/24/1967 Traditional Medicare (ACO) Annual Wellness Visit 12/23 PNEUMOCOCCAL VACCINE 50+ YEARS (1 of 1 - PCV) 12/23/18 99 ZOSTER VACCINE (1 of 2) 1998 OSTEOPOROSIS SCREENING 2013 RSV VACCINE (60+ or ) (1 - 1-dose 75+ series) 12/24/2023 INFLUENZA VACCINE (#1) 2025 Insurance [facility] SUPP MEDICARE PART A AND B [facility] SUPP MEDICARE PART A AND B Advance Directives For more information, please contact: [phone] * Full Code (Latest Code Status on File) Date Activated Date Inactivated Comments 03/09/2021 10:54 AM 03/11/2021 1:51 PM * Default Full Code - Needs Discussion Date Activated Date Inactivated Comments 03/07/2021 6:20 PM 03/09/2021 10:54 AM Care Teams Mechatronics Technician Relationship Specialty Start Date End Date Valerie Mascorro MD [address] [place] [address] PCP - General Family Practice 07/09/23
== END 2025-06-15 15:02 | disposition home or self-care (01) ==
LOC: ANHLAB 15:02
PROVIDERS: PCP Family Medicine; Visit Provider Internal Medicine Hematology & Oncology
DX: D69.59 Other secondary thrombocytopenia (principal)
CPT/HCPCS: 36415; 80047; 85025